=== PATIENT | female | born 1940 | race Caucasian/White ===

== ENCOUNTER 2016-08-24 13:25 | Emergency (ER) | payer MEDICARE, BC ==
--- NOTE | 2016-08-24 13:38 | ED ---
Lower Extremity Injury HPI - General Stated Complaint: Leg Pain Time Seen by Provider: 08/24/16 13:37 Source: patient, RN notes reviewed - History of Present Illness Initial Comments: 76 year old female presents to the ER c/o right leg pain. She states while sitting the pain is 0/10 currently. She took excedrin this morning. She has felt the pain on the front of the thigh for one week. She has not seen her primary physician about it yet. She states that she does not remember and injury or trauma to the area. She does have a history of arthritis and sciatica. She states that she has no other symptoms. She is able to ambulate and walk, but states her pain is the worst when she tries to ambulate. She also does state limited movement due to pain. She denies LOC, head trauma, fall, SOB , chest pain, urinary or bowel incontinence, numbness. Injury: Thigh: Right - Related Data Home Medications Medication Instructions Recorded Confirmed Albuterol Sulfate [Proventil Hfa] 2 puff INHALATION DIRECTED PRN 05/27/16 Aspirin [Adult Low Dose Aspirin EC] 81 mg PO DAILY 05/27/16 05/27/16 Beclomethasone Dip 80 Mcg/Puff 2 puff INHALATION DIRECTED PRN 05/27/16 [Qvar] Cinnamon Bark [Cinnamon] 500 mg PO DAILY 05/27/16 05/28/16 Citalopram Hydrobromide 10 mg PO DAILY 05/27/16 05/28/16 [Citalopram HBr] Eye Drop 1 drop LEFT EYE QID 05/27/16 Eye Vitamin 1 tab PO DAILY 05/27/16 Furosemide [Lasix] 40 mg PO QAM 05/27/16 05/28/16 Garlic 1 tab PO DAILY 05/27/16 05/28/16 Metoprolol/Hydrochlorothiazide 1 tab PO DAILY 05/27/16 05/28/16 [Lopressor Hct 50-25 mg Tab] Montelukast [Singulair] 10 mg PO DAILY 05/27/16 05/28/16 Multivitamins, Thera [Multivitamin] 1 tab PO DAILY 05/27/16 05/27/16 [place]-3 Fatty Acids/Fish Oil [Fish 1 tab PO DAILY 10/18/16 10/19/16 Oil 1,000 mg Softgel] Omeprazole 20 mg PO BID 05/27/16 05/28/16 Potassium Chloride [K-Tab ER] 30 meq PO BID 05/27/16 05/28/16 metFORMIN HCL [Glucophage] 500 mg PO HS 05/27/16 05/28/16 Previous Rx's Medication Instructions Recorded traMADol HCL [Conzip] 100 mg PO Q4-6H #30 cpbp.25.75 08/24/16 Allergies Allergy/AdvReac Type Severity Reaction Status Date / Time celecoxib [From Celebrex] Allergy Dyspnea Verified 08/24/16 13:41 oxaprozin [From Daypro] Allergy Dyspnea Verified 08/24/16 13:41 Penicillins Allergy Swelling Verified 08/24/16 13:41 [id number]-[id number]-Yjd Reductase AdvReac MUSCLE PAIN Verified 08/24/16 13:41 Inhibitor Review of Systems ROS Statement: Those systems with pertinent positive or pertinent negative responses have been documented in the HPI. ROS Other: All systems not noted in ROS Statement are negative. Past Medical History Past Medical History: Asthma, Diabetes Mellitus, GERD/Reflux, Hypertension Additional Past Medical History / Comment(s): CURRENT VIRUS IN LEFT EYE, HX HIATAL HERNIA, HX POLYP,HX SKIN CA History of Any Multi-Drug Resistant Organisms: None Reported Past Surgical History: Breast Surgery, Hysterectomy, Orthopedic Surgery, Tonsillectomy Additional Past Surgical History / Comment(s): TEJINDER KNEES ARTHROSCOPY, TEJINDER FEET BONE SPURS, TEJINDER CARPAL TUNNEL, TEJINDER CATARACT, RT BREAST BX BENIGN Past Anesthesia/Blood Transfusion Reactions: No Reported Reaction Past Psychological History: Anxiety Smoking Status: Former smoker Past Alcohol Use History: None Reported Additional Past Alcohol Use History / Comment(s): QUIT SMOKING 2005, SMOKED LESS THAN 1PPD. STARTED SMOKING AGE [id number] Past Drug Use History: None Reported - Past Family History Brother(s) Family Medical History: Cancer Additional Family Medical History / Comment(s): 2 BROTHERS Sister(s) Family Medical History: Cancer General Exam Limitations: no limitations General appearance: alert, in no apparent distress Head exam: Present: atraumatic Eye exam: Present: normal appearance, PERRL, EOMI Pupils: Present: normal accommodation Neck exam: Present: normal inspection Respiratory exam: Present: normal lung sounds bilaterally Cardiovascular Exam: Present: regular rate, normal rhythm Extremities exam: Present: tenderness (right anterior thigh) Left Hip exam: Present: normal inspection, full ROM Upper Leg exam: Present: normal inspection, full ROM Knee exam: Present: normal inspection, full ROM Lower Leg exam: Present: normal inspection, full ROM Ankle exam: Present: normal inspection, full ROM Foot/Toe exam: Present: normal inspection Neurovascular tendon exam: Present: no vascular compromise Right Hip exam: Present: normal inspection, full ROM Upper Leg exam: Present: normal inspection, full ROM (with pain on extension and flexion), tenderness (right anteroir thigh) Knee exam: Present: normal inspection, full ROM (with pain on flexion and extension) Lower Leg exam: Present: normal inspection, full ROM Ankle exam: Present: normal inspection, full ROM Neurovascular tendon exam: Present: no vascular compromise Gait: observed and limited by pain (mildly) Back exam: Present: normal inspection, other (no spinous process tenderness or SI tenderness) Neurological exam: Present: alert, oriented X3, CN II-XII intact Psychiatric exam: Present: normal affect, normal mood Course Vital Signs 08/24/16 08/24/16 08/24/16 13:36 13:37 15:06 Temperature 97.7 F 97.7 F 97.9 F Pulse Rate 67 67 59 L Respiratory 18 16 16 Rate Blood Pressure 117/77 117/77 137/81 O2 Sat by Pulse 95 95 96 Oximetry Disposition Clinical Impression: Arthritis of knee, right, Arthritis of right hip Disposition: HOME SELF-CARE Condition: Good Instructions: Arthritis (ED) Additional Instructions: To return to ER with any worsening symptoms or concerns. Exhibit care after taking pain medication. Follow up with PCP and ortho in one week. Prescriptions: traMADol HCL [Conzip] 100 mg PO Q4-6H #30 cpbp.25.75 Referrals: Regis Chowdhury DO [Primary Care Provider] - 1-2 days Donny Bartlett DO [Doctor of Osteopathic Medicine] - 1-2 days Time of Disposition: 03:00
[2016-08-24 13:41] VITALS: RESP 16
--- NOTE | 2016-08-24 14:53 | XR ---
EXAMINATION TYPE: XR Hip Complete RT DATE OF EXAM: 08/24/2016 2:47 PM COMPARISON: None HISTORY: Pain TECHNIQUE: 2 views FINDINGS: I see no fracture nor dislocation. Hip joint space is normal. Sacroiliac joint is normal. IMPRESSION: Normal right hip exam.
--- NOTE | 2016-08-24 14:54 | XR ---
EXAMINATION TYPE: XR knee complete RT DATE OF EXAM: 08/24/2016 2:47 PM COMPARISON: NONE HISTORY: Pain TECHNIQUE: 3 views FINDINGS: There is minor spurring of the femoral and tibial condyles. There is slight narrowing of me dial joint space. There is spurring of the patella. There is no evidence of a fracture. IMPRESSION: Osteoarthritic changes. No fracture.
[2016-08-24 15:07] VITALS: BP 137/81; PULSE 59; TEMP 97.9
== END 2016-08-24 15:25 | disposition home or self-care (01) ==
LOC: EC 13:25
DX: M17.11 Unilateral primary osteoarthritis, right knee (principal); M16.11 Unilateral primary osteoarthritis, right hip; Z79.899 Other long term (current) drug therapy; Z79.82 Long term (current) use of aspirin; Z79.84 Long term (current) use of oral hypoglycemic drugs; Z88.0 Allergy status to penicillin; Z88.8 Allergy status to other drugs, medicaments and biological substances; J45.909 Unspecified asthma, uncomplicated; E11.9 Type 2 diabetes mellitus without complications; K21.9 Gastro-esophageal reflux disease without esophagitis; I10 Essential (primary) hypertension; F41.9 Anxiety disorder, unspecified; Z87.891 Personal history of nicotine dependence
CPT/HCPCS: 73502; 99283

== ENCOUNTER → 2016-09-11 | Outpatient (CLI) | payer MEDICARE, BC ==
--- NOTE | 2016-09-12 10:10 | MM ---
Reason for exam: screening (asymptomatic). Last mammogram was performed 1 year ago. History: Patient is postmenopausal and has history of high-risk lesion on a previous biopsy at age 31. Benign excisional biopsy of the right breast, 1970. Physical Findings: A clinical breast exam by your physician is recommended on an annual basis and results should be correlated with mammographic findings. MG 3D Screening Mammo W/Cad Bilateral CC and MLO view(s) were taken. Prior study comparison: September 06, 2015, bilateral MG screening mammo w CAD. July 20, 2014, bilateral MG screening mammo w CAD. There are scattered fibroglandular densities. There is chronic nodularity in the left breast. There is no dominant lesion. No significant changes when compared with prior studies. ASSESSMENT: Benign, BI-RAD 2 RECOMMENDATION: Routine screening mammogram of both breasts in 1 year.
== END | disposition home or self-care (01) ==
LOC: RADMAMWWP 10:23
PROVIDERS: ATTEND Family Medicine
DX: Z12.31 Encounter for screening mammogram for malignant neoplasm of breast (principal)
CPT/HCPCS: 77063; G0202

== ENCOUNTER → 2017-09-24 | Outpatient (CLI) | payer MEDICARE, BC ==
--- NOTE | 2017-09-28 08:59 | MM ---
Reason for exam: screening (asymptomatic). Last mammogram was performed 1 year ago. History: Patient is postmenopausal and has history of high-risk lesion on a previous biopsy at age 31. Benign excisional biopsy of the right breast, 1970. Physical Findings: A clinical breast exam by your physician is recommended on an annual basis and results should be correlated with mammographic findings. MG 3D Screening Mammo W/Cad Bilateral CC and MLO view(s) were taken. Prior study comparison: September 11, 2016, bilateral MG 3d screening mammo w/cad. September 06, 2015, bilateral MG screening mammo w CAD. There are scattered fibroglandular densities. There is chronic nodularity in the left breast. No significant changes when compared with prior studies. ASSESSMENT: Negative, BI-RAD 1 RECOMMENDATION: Routine screening mammogram of both breasts in 1 year.
== END | disposition home or self-care (01) ==
LOC: RADMAMWWP 08:45
PROVIDERS: ATTEND Internal Medicine
DX: Z12.31 Encounter for screening mammogram for malignant neoplasm of breast (principal)
CPT/HCPCS: 77063; 77067

== ENCOUNTER 2018-05-18 16:28 | Emergency (ER) | payer MEDICARE, BC ==
[2018-05-18] MEDS ORDERED: SODIUM CHLORIDE 0.9% 1,000 ML IV STA (16:50)
[2018-05-18] MEDS ORDERED: SODIUM CHLORIDE 0.9% 500 ML IV STA (16:50)
[2018-05-18] MEDS ORDERED: ONDANSETRON 4 MG/2 ML VIAL IVP STA (16:50)
[2018-05-18] MEDS ORDERED: PANTOPRAZOLE 40 MG/10 ML VIAL IVP STA (16:51)
--- NOTE | 2018-05-18 17:03 | ED ---
Nausea/Vomiting/Diarrhea HPI - General Chief complaint: Nausea/Vomiting/Diarrhea Stated complaint: NVD Time Seen by Provider: 05/18/18 16:47 Source: patient, EMS, RN notes reviewed Mode of arrival: EMS Limitations: no limitations - History of Present Illness Initial comments: 78-year-old female presents emergency department via EMS chief complaint of nausea vomiting diarrhea. Patient states symptoms started late last night haven 't persisted throughout the day. She denies chest pain, shortness breath, fever , chills, and dizziness. She states that she has had several episodes a normal amount of diarrhea and vomiting states it's bilious emesis at this time and states that her loose watery diarrhea. She's had no sick contacts. She's had a prior appendectomy and hysterectomy. She has no urinary symptoms. - Related Data Home Medications Medication Instructions Recorded Confirmed Albuterol Sulfate [Proventil Hfa] 2 puff INHALATION DIRECTED PRN 05/27/1604/27 Aspirin [Adult Low Dose Aspirin EC] 81 mg PO HS 05/27/16 05/18/18 Beclomethasone Dip 80 Mcg/Puff 2 puff INHALATION RT-DAILY PRN 05/27/16 05/18/18 [Qvar] Cinnamon Bark [Cinnamon] 500 mg PO DAILY 05/27/16 05/18/18 Citalopram Hydrobromide 20 mg PO DAILY 05/27/16 05/18/18 [Citalopram HBr] Eye Vitamin 1 tab PO DAILY 05/27/16 05/18/18 Furosemide [Lasix] 40 mg PO QAM 05/27/16 05/18/18 Garlic 1 tab PO DAILY 05/27/16 05/18/18 Metoprolol/Hydrochlorothiazide 1 tab PO HS 05/27/16 05/18/18 [Lopressor Hct 50-25 mg Tab] Montelukast [Singulair] 10 mg PO HS 05/27/16 05/18/18 Multivitamins, Thera [Multivitamin] 1 tab PO DAILY 05/27/16 05/18/18 [place]-3 Fatty Acids/Fish Oil [Fish 1 tab PO DAILY 05/27/16 05/18/18 Oil 1,000 mg Softgel] Potassium Chloride [K-Tab ER] 30 meq PO HS 05/27/16 05/18/18 metFORMIN HCL [Glucophage] 500 mg PO BID 05/27/16 05/18/18 Calcium Carbonate [Calcium] 600 mg PO DAILY 05/18/18 05/18/18 Cetirizine HCl [Zyrtec] 10 mg PO DAILY 05/18/18 05/18/18 Furosemide [Lasix] 20 mg PO HS 05/18/18 05/18/18 Magnesium 200 mg PO DAILY 05/18/18 05/18/18 Niacin 250 mg PO DAILY 05/18/18 05/18/18 Omeprazole [PriLOSEC] 40 mg PO DAILY 05/18/18 05/18/18 Allergies Allergy/AdvReac Type Severity Reaction Status Date / Time celecoxib [From Celebrex] Allergy Dyspnea Verified 05/18/18 16:42 oxaprozin [From Daypro] Allergy Dyspnea Verified 05/18/18 16:42 Penicillins Allergy Swelling Verified 05/18/18 16:42 Pehsxgv-Rrn-Kns Reductase AdvReac MUSCLE PAIN Verified 05/18/18 16:42 Inhibitor Review of Systems ROS Statement: Those systems with pertinent positive or pertinent negative responses have been documented in the HPI. ROS Other: All systems not noted in ROS Statement are negative. Past Medical History Past Medical History: Asthma, Diabetes Mellitus, GERD/Reflux, Hypertension Additional Past Medical History / Comment(s): CURRENT VIRUS IN LEFT EYE, HX HIATAL HERNIA, HX POLYP,HX SKIN CA History of Any Multi-Drug Resistant Organisms: None Reported Past Surgical History: Breast Surgery, Hysterectomy, Orthopedic Surgery, Tonsillectomy Additional Past Surgical History / Comment(s): TEJINDER KNEES ARTHROSCOPY, TEJINDER FEET BONE SPURS, TEJINDER CARPAL TUNNEL, TEJINDER CATARACT, RT BREAST BX BENIGN Past Anesthesia/Blood Transfusion Reactions: No Reported Reaction Past Psychological History: Anxiety Smoking Status: Former smoker Past Alcohol Use History: None Reported Past Drug Use History: None Reported - Past Family History Brother(s) Family Medical History: Cancer Additional Family Medical History / Comment(s): 2 BROTHERS Sister(s) Family Medical History: Cancer General Exam Limitations: no limitations General appearance: alert, in no apparent distress Head exam: Present: atraumatic, normocephalic, normal inspection Neck exam: Present: normal inspection. Absent: tenderness, meningismus, lymphadenopathy Respiratory exam: Present: normal lung sounds bilaterally. Absent: respiratory distress, wheezes, rales, rhonchi, stridor Cardiovascular Exam: Present: regular rate, normal rhythm, normal heart sounds. Absent: systolic murmur, diastolic murmur, rubs, gallop, clicks GI/Abdominal exam: Present: soft, normal bowel sounds. Absent: distended, tenderness, guarding, rebound, rigid Back exam: Absent: CVA tenderness (R), CVA tenderness (L) Neurological exam: Present: alert Skin exam: Present: warm, dry, intact, normal color. Absent: rash Course Vital Signs 05/18/18 05/18/18 16:46 18:37 Temperature 98.9 F Pulse Rate 72 65 Respiratory 18 18 Rate Blood Pressure 181/85 187/88 O2 Sat by Pulse 97 98 Oximetry Medical Decision Making - Medical Decision Making 78-year-old female presents emergency department for nausea vomiting diarrhea. Patient had lab work, was hydrated given antiemetics. Patient states she feels improved she is able tolerate water and crackers. Patient will be discharged at this time return parameters were discussed. - Lab Data Result diagrams: 05/18/18 17:35 05/18/18 17:35 Lab Results 05/18/18 05/18/18 05/18/18 Range/Units 17:35 17:35 17:55 WBC 5.4 (3.8-10.6) k/uL RBC 4.19 (3.80-5.40) m/uL Hgb 13.4 (11.4-16.0) gm/dL Hct 39.0 (34.0-46.0) % MCV 93.1 (80.0-100.0) fL MCH 32.0 (25.0-35.0) pg MCHC 34.4 (31.0-37.0) g/dL RDW 13.4 (11.5-15.5) % Plt Count 251 (150-450) k/uL Neutrophils % 70 % Lymphocytes % 22 % Monocytes % 5 % Eosinophils % 2 % Basophils % 1 % Neutrophils # 3.8 (1.3-7.7) k/uL Lymphocytes # 1.2 (1.0-4.8) k/uL Monocytes # 0.3 (0-1.0) k/uL Eosinophils # 0.1 (0-0.7) k/uL Basophils # 0.0 (0-0.2) k/uL Sodium 138 (137-145) mmol/L Potassium 3.7 (3.5-5.1) mmol/L Chloride 103 (98-107) mmol/L Carbon Dioxide 26 (22-30) mmol/L Anion Gap 9 mmol/L BUN 19 H (7-17) mg/dL Creatinine 0.68 (0.52-1.04) mg/dL Est GFR (CKD-EPI)AfAm >90 (>60 ml/min/1.73 sqM) Est GFR (CKD-EPI)NonAf 85 (>60 ml/min/1.73 sqM) Glucose 128 H (74-99) mg/dL Calcium 9.4 (8.4-10.2) mg/dL Total Bilirubin 0.6 (0.2-1.3) mg/dL AST 20 (14-36) U/L ALT 26 (9-52) U/L Alkaline Phosphatase 53 (38-126) U/L Total Protein 6.7 (6.3-8.2) g/dL Albumin 4.1 (3.5-5.0) g/dL Amylase <30 L (30-110) U/L Lipase 87 (23-300) U/L Urine Color Light Yellow Urine Appearance Clear (Clear) Urine pH 7.0 (5.0-8.0) Ur Specific [place] 1.011 (1.001-1.035) Urine Protein Negative (Negative) Urine Glucose (UA) Negative (Negative) Urine Ketones Negative (Negative) Urine Blood Negative (Negative) Urine Nitrite Negative (Negative) Urine Bilirubin Negative (Negative) Urine Urobilinogen <2.0 (<2.0) mg/dL Ur Leukocyte Esterase Negative (Negative) Disposition Clinical Impression: Gastroenteritis Disposition: HOME SELF-CARE Condition: Stable Instructions: Gastroenteritis (ED) Additional Instructions: Please return to the Emergency Department if symptoms worsen or any other concerns. Is patient prescribed a controlled substance at d/c from ED?: No Referrals: Rolf Houston MD [Primary Care Provider] - 1-2 days Time of Disposition: 19:38
[2018-05-18 17:48] LABS: Basophils % (A) 1 %; Eosinophils # (A) 0.1 k/uL (0-0.7); Eosinophils % (A) 2 %; HGB 13.4 gm/dL (11.4-16.0); Lymphocytes # (A) 1.2 k/uL (1.0-4.8); Lymphocytes % (A) 22 %; MCHC 34.4 g/dL (31.0-37.0); MCV 93.1 fL (80.0-100.0); Mean Platelet Volume 7.9; Monocytes # (A) 0.3 k/uL (0-1.0); Monocytes % (A) 5 %; Neutrophils # (A) 3.8 k/uL (1.3-7.7); Neutrophils % (A) 70 %; Platelet Count 251 k/uL (150-450); RBC 4.19 m/uL (3.80-5.40); RDW 13.4 % (11.5-15.5); WBC 5.4 k/uL (3.8-10.6)
--- NOTE | 2018-05-18 18:00 | XR ---
EXAMINATION TYPE: XR KUB, 2 views DATE OF EXAM: 05/18/2018 COMPARISON: NONE HISTORY: Pain TECHNIQUE: 2 upright views FINDINGS: Visualized lung bases and pleural spaces are negative. No pneumoperitoneum. Bowel gas pattern is within normal limits. No definite acute abdominal pelvic soft tissue or skeletal process. IMPRESSION: Negative examination.
[2018-05-18 18:02] LABS: ALT 26 U/L (9-52); AST 20 U/L (14-36); Albumin 4.1 g/dL (3.5-5.0); Alkaline Phosphatase 53 U/L (38-126); Amylase <30 U/L (30-110); Anion Gap 9 mmol/L; Blood Urea Nitrogen 19 mg/dL (7-17); Calcium 9.4 mg/dL (8.4-10.2); Carbon Dioxide 26 mmol/L (22-30); Chloride 103 mmol/L (98-107); Glucose 128 mg/dL (74-99); Lipase 87 U/L (23-300); Potassium 3.7 mmol/L (3.5-5.1); Sodium 138 mmol/L (137-145); Total Bilirubin 0.6 mg/dL (0.2-1.3); Total Protein 6.7 g/dL (6.3-8.2)
[2018-05-18 18:05] LABS: Appearance,Urine Clear (Clear); Bilirubin,Urine Negative (Negative); Blood,Urine Negative (Negative); Color,Urine Light Yellow; Glucose,Urine (UA) Negative (Negative); Ketones,Urine Negative (Negative); Leukocyte Esterase,Urine Negative (Negative); Nitrite,Urine Negative (Negative); Protein,Urine Negative (Negative); Specific Gravity,Urine 1.011 (1.001-1.035); Urobilinogen,Urine <2.0 mg/dL (<2.0)
[2018-05-18] MEDS ORDERED: METOCLOPRAMIDE 5 MG/ML 2 ML VIAL IVP STA (18:15)
[2018-05-18] MEDS ORDERED: ONDANSETRON 4 MG ODT STARTER PACK 2 TAB BTL PO STA (19:38)
[2018-05-18 20:18] VITALS: BP 175/82; PULSE 64; RESP 17; TEMP 97.9
== END 2018-05-18 20:13 | disposition home or self-care (01) ==
LOC: EC 16:28
DX: K52.9 Noninfective gastroenteritis and colitis, unspecified (principal); J45.909 Unspecified asthma, uncomplicated; E11.9 Type 2 diabetes mellitus without complications; F41.9 Anxiety disorder, unspecified; K21.9 Gastro-esophageal reflux disease without esophagitis; I10 Essential (primary) hypertension; Z87.19 Personal history of other diseases of the digestive system; Z86.010 Personal history of colon polyps; Z85.828 Personal history of other malignant neoplasm of skin; Z87.891 Personal history of nicotine dependence; Z90.49 Acquired absence of other specified parts of digestive tract; Z90.710 Acquired absence of both cervix and uterus; Z98.890 Other specified postprocedural states; Z79.82 Long term (current) use of aspirin; Z79.84 Long term (current) use of oral hypoglycemic drugs; Z79.899 Other long term (current) drug therapy; Z88.0 Allergy status to penicillin; Z88.6 Allergy status to analgesic agent; Z88.8 Allergy status to other drugs, medicaments and biological substances
CPT/HCPCS: 36415; 80053; 82150; 83690; 85025; 81003; 74018; 99284; 96374; 96375 ×2; 96361; J2765; J2405; S0119; C9113

== ENCOUNTER 2020-12-16 09:19 | Inpatient (IN) | payer MEDICARE, BC ==
[2020-12-16] MEDS ORDERED: SODIUM CHLORIDE 0.9% 500 ML 500 ML IV STA (09:46)
--- NOTE | 2020-12-16 09:52 | ED ---
General Adult HPI - General Chief complaint: Nausea/Vomiting/Diarrhea Stated complaint: abd pain Time Seen by Provider: 12/16/20 09:20 Source: patient, RN notes reviewed, old records reviewed Mode of arrival: EMS Limitations: no limitations - History of Present Illness Initial comments: This is a 80-year-old female presents emergency Department stating that she woke up this morning and started having diarrhea. Patient states is also some blood in the stool. Patient also complains of generalized weakness. Patient states she had a little bit of hunger pains but no specific abdominal pain. Patient denies any nausea vomiting. Patient denies any chest pain palpitations difficulty breathing shortness of breath. Patient denies any dysuria hematuria urinary frequency. Patient denies any back pain. Patient denies similar symptoms in the past. Patient denies being on any blood thinners. - Related Data Home Medications Medication Instructions Recorded Confirmed Albuterol Sulfate [Proventil Hfa] 2 puff INHALATION RT-Q6H PRN 05/27/16 12/16/20 Cinnamon Bark [Cinnamon] 500 mg PO TID 05/27/16 12/16/20 Citalopram Hydrobromide 20 mg PO DAILY 05/27/16 12/16/20 [Citalopram HBr] Furosemide [Lasix] 40 mg PO DAILY 05/27/16 12/16/20 Montelukast [Singulair] 10 mg PO HS 05/27/16 12/16/20 Multivitamins, Thera [Multivitamin] 1 tab PO DAILY 05/27/16 12/16/20 metFORMIN HCL [Glucophage] 500 mg PO BID 05/27/16 12/16/20 Calcium Carbonate [Calcium] 600 mg PO BID 05/18/18 12/16/20 Furosemide [Lasix] 20 mg PO HS 05/18/18 12/16/20 [id number] 2 tab PO Q6H PRN 12/16/20 12/16/20 [Excedrin] Ketotifen 0.025% Ophth Soln 1 drop BOTH EYES BID 12/16/20 12/16/20 [Zaditor] Magnesium 250 mg PO DAILY 12/16/20 12/16/20 Metoprolol Succinate (ER) [Toprol 50 mg PO DAILY 12/16/20 12/16/20 Xl] Niacin 500 mg PO BID 12/16/20 12/16/20 Pantoprazole [Protonix] 40 mg PO DAILY 12/16/20 12/16/20 Potassium Gluconate 99 mg PO BID 12/16/20 12/16/20 Propylene Glycol/Peg 400/Pf 1 drop BOTH EYES BID 12/16/20 12/16/20 [Systane 0.3-0.4% Eye Drops] Vit C/E/Zn/Coppr/Lutein/Zeaxan 1 cap PO BID 12/16/20 12/16/20 [Preservision Areds 2 Softgel] Allergies Allergy/AdvReac Type Severity Reaction Status Date / Time celecoxib [From Celebrex] Allergy Dyspnea Verified 12/16/20 09:24 oxaprozin [From Daypro] Allergy Dyspnea Verified 12/16/20 09:24 Penicillins Allergy Swelling Verified 12/16/20 09:24 Aihjjpg-Zon-Axc Reductase AdvReac MUSCLE PAIN Verified 12/16/20 09:24 Inhibitor Review of Systems ROS Statement: Those systems with pertinent positive or pertinent negative responses have been documented in the HPI. ROS Other: All systems not noted in ROS Statement are negative. Past Medical History Past Medical History: Asthma, Diabetes Mellitus, GERD/Reflux, Hypertension Additional Past Medical History / Comment(s): CURRENT VIRUS IN LEFT EYE, HX HIATAL HERNIA, HX POLYP,HX SKIN CA History of Any Multi-Drug Resistant Organisms: None Reported Past Surgical History: Breast Surgery, Hysterectomy, Orthopedic Surgery, Tonsillectomy Additional Past Surgical History / Comment(s): TEJINDER KNEES ARTHROSCOPY, TEJINDER FEET BONE SPURS, TEJINDER CARPAL TUNNEL, TEJINDER CATARACT, RT BREAST BX BENIGN Past Anesthesia/Blood Transfusion Reactions: No Reported Reaction Past Psychological History: Anxiety Smoking Status: Former smoker Past Alcohol Use History: None Reported Past Drug Use History: None Reported - Past Family History Brother(s) Family Medical History: Cancer Additional Family Medical History / Comment(s): 2 BROTHERS Sister(s) Family Medical History: Cancer General Exam - General Exam Comments Initial Comments: GENERAL: Patient is well-developed and well-nourished. Patient is nontoxic and well- hydrated and is in mild distress. ENT: Neck is soft and supple. No significant lymphadenopathy is noted. Oropharynx is clear. Moist mucous membranes. Neck has full range of motion without eliciting any pain. EYES: The sclera were anicteric and conjunctiva were pink and moist. Extraocular movements were intact and pupils were equal round and reactive to light. Eyelids were unremarkable. PULMONARY: Unlabored respirations. Good breath sounds bilaterally. No audible rales rhonchi or wheezing was noted. CARDIOVASCULAR: There is a regular rate and rhythm without any murmurs gallops or rubs. ABDOMEN: Soft and nontender with normal bowel sounds. SKIN: Skin is clear with no lesions or rashes and otherwise unremarkable. NEUROLOGIC: Patient is alert and oriented x3. Cranial nerves II through XII are grossly intact. Motor and sensory are also intact. Normal speech, volume and content. Symmetrical smile. MUSCULOSKELETAL: Normal extremities with adequate strength and full range of motion. LYMPHATICS: No significant lymphadenopathy is noted PSYCHIATRIC: Normal psychiatric evaluation. Limitations: no limitations Course Vital Signs 12/16/20 09:21 Temperature 98.3 F Pulse Rate 63 Respiratory 16 Rate Blood Pressure 154/70 O2 Sat by Pulse 98 Oximetry Medical Decision Making - Medical Decision Making EKG shows normal sinus rhythm at 63 bpm IA interval is on a 34 QRS is 86 QT interval 412 QTC is 421 per patient's EKG shows no ST segment elevation or depression. Patient received fluids in the emergency department I will back and reevaluated and she was feeling better. I spoke with Dr. Sarmiento she agreed to admit the patient minute the patient wrote admitting orders. - Lab Data Result diagrams: 12/16/20 09:55 12/16/20 09:55 Lab Results 12/16/20 12/16/20 12/16/20 Range/Units 09:55 09:55 10:13 WBC 7.0 (3.8-10.6) k/uL RBC 3.34 L (3.80-5.40) m/uL Hgb 11.1 L (11.4-16.0) gm/dL Hct 32.3 L (34.0-46.0) % MCV 96.8 (80.0-100.0) fL MCH 33.3 (25.0-35.0) pg MCHC 34.4 (31.0-37.0) g/dL RDW 14.1 (11.5-15.5) % Plt Count 226 (150-450) k/uL MPV 8.2 Neutrophils % 72 % Lymphocytes % 17 % Monocytes % 4 % Eosinophils % 4 % Basophils % 1 % Neutrophils # 5.1 (1.3-7.7) k/uL Lymphocytes # 1.2 (1.0-4.8) k/uL Monocytes # 0.3 (0-1.0) k/uL Eosinophils # 0.3 (0-0.7) k/uL Basophils # 0.1 (0-0.2) k/uL PT (9.0-12.0) sec INR (<1.2) APTT (22.0-30.0) sec Sodium 140 (137-145) mmol/L Potassium 4.5 (3.5-5.1) mmol/L Chloride 107 (98-107) mmol/L Carbon Dioxide 28 (22-30) mmol/L Anion Gap 5 mmol/L BUN 35 H (7-17) mg/dL Creatinine 0.79 (0.52-1.04) mg/dL Est GFR (CKD-EPI)AfAm 84 (>60 ml/min/1.73 sqM) Est GFR (CKD-EPI)NonAf 73 (>60 ml/min/1.73 sqM) Glucose 133 H (74-99) mg/dL Calcium 8.7 (8.4-10.2) mg/dL Total Bilirubin 0.5 (0.2-1.3) mg/dL AST 21 (14-36) U/L ALT 13 (4-34) U/L Alkaline Phosphatase 40 (38-126) U/L Total Protein 5.6 L (6.3-8.2) g/dL Albumin 3.3 L (3.5-5.0) g/dL Amylase 32 (30-110) U/L Lipase 128 (23-300) U/L Urine Color Yellow Urine Appearance Clear (Clear) Urine pH 8.0 (5.0-8.0) Ur Specific [place] 1.026 (1.001-1.035) Urine Protein Negative (Negative) Urine Glucose (UA) Negative (Negative) Urine Ketones Negative (Negative) Urine Blood Negative (Negative) Urine Nitrite Negative (Negative) Urine Bilirubin Negative (Negative) Urine Urobilinogen <2.0 (<2.0) mg/dL Ur Leukocyte Esterase Negative (Negative) Blood Type Recheck Bld Type Recheck Status Spec Expiration Date 12/16/20 12/16/20 Range/Units 10:40 10:50 WBC (3.8-10.6) k/uL RBC (3.80-5.40) m/uL Hgb (11.4-16.0) gm/dL Hct (34.0-46.0) % MCV (80.0-100.0) fL MCH (25.0-35.0) pg MCHC (31.0-37.0) g/dL RDW (11.5-15.5) % Plt Count (150-450) k/uL MPV Neutrophils % % Lymphocytes % % Monocytes % % Eosinophils % % Basophils % % Neutrophils # (1.3-7.7) k/uL Lymphocytes # (1.0-4.8) k/uL Monocytes # (0-1.0) k/uL Eosinophils # (0-0.7) k/uL Basophils # (0-0.2) k/uL PT 11.6 (9.0-12.0) sec INR 1.1 (<1.2) APTT 21.5 L (22.0-30.0) sec Sodium (137-145) mmol/L Potassium (3.5-5.1) mmol/L Chloride (98-107) mmol/L Carbon Dioxide (22-30) mmol/L Anion Gap mmol/L BUN (7-17) mg/dL Creatinine (0.52-1.04) mg/dL Est GFR (CKD-EPI)AfAm (>60 ml/min/1.73 sqM) Est GFR (CKD-EPI)NonAf (>60 ml/min/1.73 sqM) Glucose (74-99) mg/dL Calcium (8.4-10.2) mg/dL Total Bilirubin (0.2-1.3) mg/dL AST (14-36) U/L ALT (4-34) U/L Alkaline Phosphatase (38-126) U/L Total Protein (6.3-8.2) g/dL Albumin (3.5-5.0) g/dL Amylase (30-110) U/L Lipase (23-300) U/L Urine Color Urine Appearance (Clear) Urine pH (5.0-8.0) Ur Specific [place] (1.001-1.035) Urine Protein (Negative) Urine Glucose (UA) (Negative) Urine Ketones (Negative) Urine Blood (Negative) Urine Nitrite (Negative) Urine Bilirubin (Negative) Urine Urobilinogen (<2.0) mg/dL Ur Leukocyte Esterase (Negative) Blood Type Recheck No Previous Record Bld Type Recheck Status CABO Indicated Spec Expiration Date 12/19/20202339 Disposition Clinical Impression: GI bleed, Diarrhea, Generalized weakness Disposition: ADMITTED IP TO THIS HOSP Referrals: Rolf Houston MD [Primary Care Provider] - 1-2 days Time of Disposition: 11:47
[2020-12-16 10:02] LABS: Basophils # (A) 0.1 k/uL (0-0.2); Basophils % (A) 1 %; Eosinophils # (A) 0.3 k/uL (0-0.7); Eosinophils % (A) 4 %; HCT 32.3 % (34.0-46.0); HGB 11.1 gm/dL (11.4-16.0); Lymphocytes # (A) 1.2 k/uL (1.0-4.8); Lymphocytes % (A) 17 %; MCH 33.3 pg (25.0-35.0); MCHC 34.4 g/dL (31.0-37.0); MCV 96.8 fL (80.0-100.0); Mean Platelet Volume 8.2; Monocytes # (A) 0.3 k/uL (0-1.0); Monocytes % (A) 4 %; Neutrophils # (A) 5.1 k/uL (1.3-7.7); Neutrophils % (A) 72 %; Platelet Count 226 k/uL (150-450); RBC 3.34 m/uL (3.80-5.40); RDW 14.1 % (11.5-15.5)
[2020-12-16 10:30] LABS: Albumin 3.3 g/dL (3.5-5.0); Calcium 8.7 mg/dL (8.4-10.2); Potassium 4.5 mmol/L (3.5-5.1); Total Bilirubin 0.5 mg/dL (0.2-1.3); Total Protein 5.6 g/dL (6.3-8.2)
[2020-12-16 11:12] LABS: Appearance,Urine Clear (Clear); Bilirubin,Urine Negative (Negative); Blood,Urine Negative (Negative); Color,Urine Yellow; Glucose,Urine (UA) Negative (Negative); Ketones,Urine Negative (Negative); Leukocyte Esterase,Urine Negative (Negative); Nitrite,Urine Negative (Negative); Protein,Urine Negative (Negative); Specific Gravity,Urine 1.026 (1.001-1.035); Urobilinogen,Urine <2.0 mg/dL (<2.0)
[2020-12-16 11:15] LABS: INR 1.1 (<1.2); Prothrombin Time 11.6 sec (9.0-12.0)
[2020-12-16 11:37] LABS: Partial Thromboplastin Time 21.5 sec (22.0-30.0)
[2020-12-16] MEDS ORDERED: SODIUM CHLORIDE 0.9% 1,000 ML IV ONE (11:47)
[2020-12-16 14:17] LABS: Glucose,Whole Blood 121 mg/dL (75-99)
[2020-12-16] MEDS ORDERED: ALBUTEROL HFA INHALER INHALATION PRN (15:22)
[2020-12-16] MEDS ORDERED: ONDANSETRON 4 MG/2 ML VIAL IVP PRN (15:31)
[2020-12-16] MEDS ORDERED: ACETAMINOPHEN TAB 325 MG TAB PO PRN (15:31)
--- NOTE | 2020-12-16 15:40 | P.HPIM ---
History of Present Illness H&P Date: 12/16/20 This is a 80 years old female patient of Dr. Silva with past medical history of asthma, type 2 diabetes, GERD, hypertension comes in with multiple episodes of diarrhea starting this morning. Patient also notices black stool this morning. She denies any history of previous GI bleed. Last colonoscopy was 4 years ago had polyps removed Patient also had an EGD and has hiatal hernia but denied any history of gastric ulcers. She is currently under a lot of stress due to her being sick. Patient complains of mild epigastric discomfort like a hunger pains but no other abdominal pain. She denies any chest pain, dizziness, palpitation, shortness of breath, hematuria, burning mi cturition, back pain. She denies any recent use of blood thinners. She does take Excedrin for her arthritis 2 in the morning and 2 in the evening vitals reviewed in the ER suggested temp of 98.3 pulse 63 respiratory rate 16 blood pressure 154/60. Labs evaluated suggested a hemoglobin of 11.1, hematocrit 32.3, WBC 7, CMP with sodium 140 potassium 4.5 chloride 107 BUN 35 creatinine 0.79 glucose 133 UA is normal. EKG is reviewedrule out ACS. Appears sinus rhythm. Review of Systems Constitutional: Endorses fever and chills, Denies lethargy, Denies malaise, Denies poor appetite, Denies weakness, Denies weight loss Eyes: denies decreased vision, denies diplopia, denies discharge, denies pain Ears: deny: decreased hearing Ears, nose, mouth and throat: Denies dental pain, Denies headache, Denies nasal discharge, Denies nose pain Cardiovascular: Denies chest pain, Denies decreased exercise tolerance, Denies edema, Denies high blood pressure, Denies irregular heart beat, Denies palpitations, Denies paroxysmal nocturnal dyspnea, Denies rapid heart beat, Denies shortness of breath Respiratory: Denies congestion, Denies cough, Denies cough with sputum, Denies dyspnea, Denies home oxygen, Denies wheezing Gastrointestinal: Endorses hunger pain, diarrhea, endorses black blood in her stool Denies change in bowel habits, Denies coffee ground emesis, Denies early satiety, Denies excessive gas, Denies heartburn, Denies hematemesis, Denies hematochezia, Denies loss of appetite, Denies nausea, Denies vomiting Genitourinary: Denies dysuria, Denies flank pain, Denies kidney stones, Denies menorrhagia, Denies urgency, Denies urinary frequency Musculoskeletal: Denies gait dysfunction, Denies limitation of motion, Denies morning stiffness, Denies muscle cramps Integumentary: Denies rash, Denies wounds, Denies brittle nails, Denies change in hair/nails, Denies darkening of skin Neurological: Denies balance difficulties, Denies change in speech, Denies double vision, Denies gait dysfunction, Denies loss of vision, Denies motor disturbance, Denies numbness, Denies paralysis, Denies paresthesias, Denies seizures Psychiatric: Denies anxiety, Denies depression Endocrine: Denies excessive sweating, Denies excessive thirst, Denies high blood sugars, Denies palpitations Hematologic/Lymphatic: Denies easy bruising, Denies lymphadenopathy Past Medical History Past Medical History: Asthma, Diabetes Mellitus, GERD/Reflux, Hypertension Additional Past Medical History / Comment(s): pink eye IN LEFT EYE, HX HIATAL HERNIA, HX POLYP,HX SKIN CA History of Any Multi-Drug Resistant Organisms: None Reported Past Surgical History: Appendectomy, Breast Surgery, Hysterectomy, Orthopedic Surgery, Tonsillectomy Additional Past Surgical History / Comment(s): TEJINDER KNEES ARTHROSCOPY, TEJINDER FEET BONE SPURS, TEJINDER CARPAL TUNNEL, TEJINDER CATARACT, RT BREAST BX BENIGN, TRIGGER RELEASE Past Anesthesia/Blood Transfusion Reactions: No Reported Reaction Past Psychological History: Anxiety Smoking Status: Former smoker Past Alcohol Use History: None Reported Additional Past Alcohol Use History / Comment(s): QUIT SMOKING 2006, SMOKED LESS THAN 1PPD. STARTED SMOKING AGE [id number] Past Drug Use History: None Reported - Past Family History Brother(s) Family Medical History: Cancer Additional Family Medical History / Comment(s): 2 BROTHERS Sister(s) Family Medical History: Cancer Medications and Allergies Home Medications Medication Instructions Recorded Confirmed Type Albuterol Sulfate [Proventil Hfa] 2 puff INHALATION RT-Q6H PRN 05/27/16 12/16/20 History Cinnamon Bark [Cinnamon] 500 mg PO TID 05/27/16 12/16/20 History Citalopram Hydrobromide 20 mg PO DAILY 05/27/16 12/16/20 History [Citalopram HBr] Furosemide [Lasix] 40 mg PO DAILY 05/27/16 12/16/20 History Montelukast [Singulair] 10 mg PO HS 05/27/16 12/16/20 History Multivitamins, Thera [Multivitamin] 1 tab PO DAILY 05/27/16 12/16/20 History metFORMIN HCL [Glucophage] 500 mg PO BID 05/27/16 12/16/20 History Calcium Carbonate [Calcium] 600 mg PO BID 05/18/18 12/16/20 History Furosemide [Lasix] 20 mg PO HS 05/18/18 12/16/20 History [id number] 2 tab PO Q6H PRN 12/16/20 12/16/20 History [Excedrin] Ketotifen 0.025% Ophth Soln 1 drop BOTH EYES BID 12/16/20 12/16/20 History [Zaditor] Magnesium 250 mg PO DAILY 12/16/20 12/16/20 History Metoprolol Succinate (ER) [Toprol 50 mg PO DAILY 12/16/20 12/16/20 History Xl] Niacin 500 mg PO BID 12/16/20 12/16/20 History Pantoprazole [Protonix] 40 mg PO DAILY 12/16/20 12/16/20 History Potassium Gluconate 99 mg PO BID 12/16/20 12/16/20 History Propylene Glycol/Peg 400/Pf 1 drop BOTH EYES BID 12/16/20 12/16/20 History [Systane 0.3-0.4% Eye Drops] Vit C/E/Zn/Coppr/Lutein/Zeaxan 1 cap PO BID 12/16/20 12/16/20 History [Preservision Areds 2 Softgel] Allergies Allergy/AdvReac Type Severity Reaction Status Date / Time celecoxib [From Celebrex] Allergy Dyspnea Verified 12/16/20 09:24 oxaprozin [From Daypro] Allergy Dyspnea Verified 12/16/20 09:24 Penicillins Allergy Swelling Verified 12/16/20 09:24 Tmouoej-Rro-Gug Reductase AdvReac MUSCLE PAIN Verified 12/16/20 09:24 Inhibitor Physical Exam Vitals: Vital Signs Temp Pulse Pulse Resp BP BP Pulse Ox 12/16/20 15:11 98.6 F 101 H 18 197/80 94 L 12/16/20 13:48 98.0 F 66 16 144/70 98 12/16/20 09:21 98.3 F 63 16 154/70 98 Intake and Output 12/16/20 12/16/20 12/16/20 06:59 14:59 22:59 Other: Weight 94 kg - Constitutional General appearance: cooperative, no acute distress, obese - EENT Eyes: anicteric sclerae, PERRLA, normal appearance ENT: hearing grossly normal - Neck Neck: no lymphadenopathy, normal ROM, no other, no rigidity, no stridor, no thyromegaly - Respiratory Respiratory: bilateral: CTA, negative: diminished, dullness, rales, rhonchi - Cardiovascular Rhythm: regular Heart sounds: normal: S1, S2 Abnormal Heart Sounds: 3/6 systolic murmur, no diastolic murmur, no rub, no S3 Gallop, no S4 Gallop, no click, no other - Gastrointestinal General gastrointestinal: normal bowel sounds, soft epigastric discomfort - Integumentary Integumentary: no rash - Neurologic Neurologic: No gross motor or sensory deficit - Musculoskeletal Musculoskeletal: gait normal, strength equal bilaterally - Psychiatric Psychiatric: A&O x's 3, appropriate affect Results CBC & Chem 7: 12/16/20 09:55 12/16/20 09:55 Labs: Abnormal Lab Results - Last 24 Hours (Table) 12/16/20 12/16/20 12/16/20 Range/Units 09:55 09:55 10:50 RBC 3.34 L (3.80-5.40) m/uL Hgb 11.1 L (11.4-16.0) gm/dL Hct 32.3 L (34.0-46.0) % APTT 21.5 L (22.0-30.0) sec BUN 35 H (7-17) mg/dL Glucose 133 H (74-99) mg/dL POC Glucose (mg/dL) (75-99) mg/dL Total Protein 5.6 L (6.3-8.2) g/dL Albumin 3.3 L (3.5-5.0) g/dL 12/16/20 Range/Units 14:13 RBC (3.80-5.40) m/uL Hgb (11.4-16.0) gm/dL Hct (34.0-46.0) % APTT (22.0-30.0) sec BUN (7-17) mg/dL Glucose (74-99) mg/dL POC Glucose (mg/dL) 121 H (75-99) mg/dL Total Protein (6.3-8.2) g/dL Albumin (3.5-5.0) g/dL Thrombosis Risk Factor Assmnt - DVT/VTE Prophylaxis DVT/VTE Prophylaxis: Mechanical Prophylaxis ordered - Choose All That Apply Any of the Below Risk Factors Present?: Yes Each Factor Represents 1 point: Obesity (BMI >25) Other Risk Factors: Yes Each Risk Factor Represents 3 Points: Age 75 years or older Other congenital or acquired thrombophilia - If yes, enter type in comment: No Thrombosis Risk Factor Assessment Total Risk Factor Score: 4 Thrombosis Risk Factor Assessment Level: Moderate Risk Assessment and Plan Plan: #1 acute GI bleed likely secondary to peptic ulcer disease. GI consult for possible EGD. CBC daily. Pantoprazole 40 IV twice a day. Normal saline at 75 mL per hour. #2 acute diarrhea unclear etiology likely secondary to GI bleed. Inflammation markers ESR, CRP, LDH ordered. COVID 19 negative. C. diff ordered stool cultures ordered #3 asthma pro-air as needed #4 GERD with history of hiatal hernia on pantoprazole 40 mg twice a day #5 diabetes type 2 controlled on metformin #6 depression controlled on citalopram 20 mg by mouth daily #7 hypertension controlled on metoprolol 50 mg daily hold Lasix in the morning Lasix 20 in the night can be given #8 CODE STATUS full code #9 DVT prophylaxis SCDs #10 disposition patient is 1-2 inpatient nights for stabilization
[2020-12-16] MEDS ORDERED: METOPROLOL SUCCINATE (ER) 50 MG TAB.ER.24H PO STA (15:50)
[2020-12-16 17:00] LABS: Glucose,Whole Blood 112 mg/dL (75-99)
[2020-12-16 18:22] LABS: HCT 26.7 % (34.0-46.0); MCHC 32.8 g/dL (31.0-37.0); MCV 97.7 fL (80.0-100.0); Mean Platelet Volume 8.7; Platelet Count 220 k/uL (150-450); RBC 2.74 m/uL (3.80-5.40); RDW 14.6 % (11.5-15.5); WBC 5.9 k/uL (3.8-10.6)
[2020-12-16 18:35] LABS: HGB 8.8 gm/dL (11.4-16.0)
[2020-12-16 18:36] LABS: C Reactive Protein 0.7 mg/dL (<1.0)
[2020-12-16] MEDS: PANTOPRAZOLE 40 MG/10 ML VIAL IVP SCH (21:58)
[2020-12-16] MEDS: MONTELUKAST 10 MG TAB PO SCH (21:59)
[2020-12-16] MEDS: CALCIUM CARBONATE 500 MG CHEWABLE PO SCH (21:59)
[2020-12-16] MEDS: VIT A,C & E-LUTEIN-MINERALS 1 EACH TAB PO SCH (21:59)
[2020-12-16] MEDS: KETOTIFEN 0.025% OPHTH DROPS 5 ML BTL BOTH EYES SCH (22:00)
[2020-12-16] MEDS: metFORMIN 500 MG TAB PO SCH (22:00)
[2020-12-16] MEDS: ARTIFICIAL TEARS-HYPROMELLOSE DROPS 15 ML BTL BOTH EYES SCH (22:00)
[2020-12-16 22:51] LABS: Ferritin 15.6 ng/mL (10.0-291.0)
[2020-12-16 23:56] LABS: HCT 23.2 % (34.0-46.0); HGB 7.9 gm/dL (11.4-16.0); MCHC 33.8 g/dL (31.0-37.0); MCV 97.5 fL (80.0-100.0); Mean Platelet Volume 9.3; Platelet Count 192 k/uL (150-450); RBC 2.38 m/uL (3.80-5.40); RDW 14.3 % (11.5-15.5); WBC 5.4 k/uL (3.8-10.6)
[2020-12-17 06:28] LABS: Basophils % (A) 1 %; Eosinophils # (A) 0.2 k/uL (0-0.7); Eosinophils % (A) 4 %; HCT 24.1 % (34.0-46.0); HGB 7.9 gm/dL (11.4-16.0); Lymphocytes # (A) 1.6 k/uL (1.0-4.8); Lymphocytes % (A) 34 %; MCHC 32.7 g/dL (31.0-37.0); MCV 97.8 fL (80.0-100.0); Mean Platelet Volume 8.6; Monocytes # (A) 0.3 k/uL (0-1.0); Monocytes % (A) 7 %; Neutrophils # (A) 2.3 k/uL (1.3-7.7); Neutrophils % (A) 50 %; Platelet Count 210 k/uL (150-450); RBC 2.47 m/uL (3.80-5.40); RDW 14.7 % (11.5-15.5); WBC 4.6 k/uL (3.8-10.6)
[2020-12-17 06:44] LABS: ALT 10 U/L (4-34); AST 17 U/L (14-36); African American GFR (CKD) 88 (>60 ml/min/1.73 sqM); Albumin 2.8 g/dL (3.5-5.0); Albumin/Globulin Ratio 1.4; Alkaline Phosphatase 36 U/L (38-126); Anion Gap 3 mmol/L; Blood Urea Nitrogen 52 mg/dL (7-17); Calcium 8.5 mg/dL (8.4-10.2); Carbon Dioxide 27 mmol/L (22-30); Chloride 114 mmol/L (98-107); Glucose 105 mg/dL (74-99); Non-African American GFR(CKD) 77 (>60 ml/min/1.73 sqM); Potassium 4.1 mmol/L (3.5-5.1); Sodium 144 mmol/L (137-145); Total Bilirubin 0.2 mg/dL (0.2-1.3); Total Protein 4.8 g/dL (6.3-8.2)
[2020-12-17 07:34] LABS: Glucose,Whole Blood 109 mg/dL (75-99)
[2020-12-17] MEDS: METOPROLOL SUCCINATE (ER) 50 MG TAB.ER.24H PO SCH (08:11)
[2020-12-17] MEDS: MORPHINE SULFATE 4 MG/ML SYRINGE IVP PRN ×2 (08:16→20:59)
[2020-12-17] MEDS: ARTIFICIAL TEARS-HYPROMELLOSE DROPS 15 ML BTL BOTH EYES SCH ×2 (08:22→21:00)
[2020-12-17] MEDS: KETOTIFEN 0.025% OPHTH DROPS 5 ML BTL BOTH EYES SCH ×2 (08:22→21:00)
[2020-12-17] MEDS: CITALOPRAM HYDROBROMIDE 20 MG TAB PO SCH (08:23)
[2020-12-17] MEDS: MAGNESIUM OXIDE 400 MG TAB PO SCH (08:23)
[2020-12-17] MEDS: metFORMIN 500 MG TAB PO SCH (08:23)
[2020-12-17] MEDS: PANTOPRAZOLE 40 MG/10 ML VIAL IVP SCH ×2 (08:23→21:01)
[2020-12-17] MEDS: VIT A,C & E-LUTEIN-MINERALS 1 EACH TAB PO SCH ×2 (08:23→21:00)
[2020-12-17] MEDS: CALCIUM CARBONATE 500 MG CHEWABLE PO SCH ×2 (08:23→20:59)
[2020-12-17] MEDS: MULTIVITAMINS, THERA 1 EACH TAB PO SCH (08:23)
[2020-12-17 11:37] LABS: HCT 23.7 % (34.0-46.0); HGB 7.6 gm/dL (11.4-16.0); Hypochromasia Slight; MCH 31.5 pg (25.0-35.0); MCHC 32.2 g/dL (31.0-37.0); MCV 97.8 fL (80.0-100.0); Mean Platelet Volume 10.2; Platelet Count 200 k/uL (150-450); RBC 2.43 m/uL (3.80-5.40); RDW 14.8 % (11.5-15.5); WBC 6.7 k/uL (3.8-10.6)
[2020-12-17 12:08] LABS: Glucose,Whole Blood 125 mg/dL (75-99)
[2020-12-17] MEDS: SODIUM CHLORIDE 0.9% 1,000 ML IV SCH (13:28)
[2020-12-17] MEDS ORDERED: PEG 3350-NA SULF,BICARB,CL/KCL 4,000 ML BOTTLE PO ONE (15:00)
--- NOTE | 2020-12-17 15:37 | P.CONS ---
History of Present Illness - Reason for Consult Consult date: 12/17/20 Diarrhea, GI bleed Requesting physician: Portillo Sarmiento - Chief Complaint Diarrhea - History of Present Illness 80-year-old female with a medical history significant for GERD, hypertension, diabetes mellitus and asthma who presented to the hospital for evaluation of diarrhea. The patient reports multiple episodes of dark colored bowel movements. She denies any associated abdominal pain with her symptoms. She denies any nausea or vomiting. She reports diarrhea starting yesterday with approximately 10-15 watery, loose bowel movements. She did report seeing some bright red blood per rectum which subsequently turned dark. No sick contacts, antibiotic therapy or exposures are reported. She has previously had an EGD. The patient does take Protonix daily at home. She also takes Excedrin. No prior history of GI bleed. She did have a colonoscopy in 2016 with findings of scattered sigmoid diverticulosis and does have a history of prior colonic polyps. Testing for Clostridium difficile was negative. Testing for occult blood was positive. Patient's hemoglobin which was 11 on presentation subsequently fell to 7.9. Other laboratory evaluation significant for WBC 4.6, hemoglobin 7.9 as mentioned, platelet count 210,000, total bilirubin 0.2, alkaline phosphatase 36, AST 17 and ALT 10. Review of Systems REVIEW OF SYSTEMS: CONSTITUTIONAL: Denies any fevers, chills, weight change or she does report fatigue. CARDIOVASCULAR: Denies any chest pain, palpitations high or low blood pressures RESPIRATORY: Denies any shortness of breath, hemoptysis or cough. GENITOURINARY: No dysuria or hematuria. MUSCULOSKELETAL: No weakness reported. SKIN: Denies any new rashes or lesions, jaundice or pallor. PSYCHIATRIC: Denies any depression or anxiety. NEUROLOGY: Denies headache, denies any new focal deficits. EARS/NOSE/THROAT: No recent hearing change, congestion, nasal discharge or sore throat. EYES: No pain in eyes, discharge or change in vision. GASTROINTESTINAL: As per HPI. Past Medical History Past Medical History: Asthma, Diabetes Mellitus, GERD/Reflux, Hypertension Additional Past Medical History / Comment(s): pink eye IN LEFT EYE, HX HIATAL HERNIA, HX POLYP,HX SKIN CA History of Any Multi-Drug Resistant Organisms: None Reported Past Surgical History: Appendectomy, Breast Surgery, Hysterectomy, Orthopedic Surgery, Tonsillectomy Additional Past Surgical History / Comment(s): TEJINDER KNEES ARTHROSCOPY, TEJINDER FEET BONE SPURS, TEJINDER CARPAL TUNNEL, TEJINDER CATARACT, RT BREAST BX BENIGN, TRIGGER RELEASE Past Anesthesia/Blood Transfusion Reactions: No Reported Reaction Past Psychological History: Anxiety Smoking Status: Former smoker Past Alcohol Use History: None Reported Additional Past Alcohol Use History / Comment(s): QUIT SMOKING 2006, SMOKED LESS THAN 1PPD. STARTED SMOKING AGE 23, 1961 Past Drug Use History: None Reported - Past Family History Brother(s) Family Medical History: Cancer Additional Family Medical History / Comment(s): 2 BROTHERS Sister(s) Family Medical History: Cancer Medications and Allergies Home Medications Medication Instructions Recorded Confirmed Type Albuterol Sulfate [Proventil Hfa] 2 puff INHALATION RT-Q6H PRN 05/27/16 12/16/20 History Cinnamon Bark [Cinnamon] 500 mg PO TID 05/27/16 12/16/20 History Citalopram Hydrobromide 20 mg PO DAILY 05/27/16 12/16/20 History [Citalopram HBr] Furosemide [Lasix] 40 mg PO DAILY 05/27/16 12/16/20 History Montelukast [Singulair] 10 mg PO HS 05/27/16 12/16/20 History Multivitamins, Thera [Multivitamin] 1 tab PO DAILY 05/27/16 12/16/20 History metFORMIN HCL [Glucophage] 500 mg PO BID 05/27/16 12/16/20 History Calcium Carbonate [Calcium] 600 mg PO BID 05/18/18 12/16/20 History Furosemide [Lasix] 20 mg PO HS 05/18/18 12/16/20 History Asnijgz-Rbnl-Khiu [id number] 2 tab PO Q6H PRN 12/16/20 12/16/20 History [Excedrin] Ketotifen 0.025% Ophth Soln 1 drop BOTH EYES BID 12/16/20 12/16/20 History [Zaditor] Magnesium 250 mg PO DAILY 12/16/20 12/16/20 History Metoprolol Succinate (ER) [Toprol 50 mg PO DAILY 12/16/20 12/16/20 History Xl] Niacin 500 mg PO BID 12/16/20 12/16/20 History Pantoprazole [Protonix] 40 mg PO DAILY 12/16/20 12/16/20 History Potassium Gluconate 99 mg PO BID 12/16/20 12/16/20 History Propylene Glycol/Peg 400/Pf 1 drop BOTH EYES BID 12/16/20 12/16/20 History [Systane 0.3-0.4% Eye Drops] Vit C/E/Zn/Coppr/Lutein/Zeaxan 1 cap PO BID 12/16/20 12/16/20 History [Preservision Areds 2 Softgel] Allergies Allergy/AdvReac Type Severity Reaction Status Date / Time celecoxib [From Celebrex] Allergy Dyspnea Verified 12/16/20 09:24 oxaprozin [From Daypro] Allergy Dyspnea Verified 12/16/20 09:24 Penicillins Allergy Swelling Verified 12/16/20 09:24 [place] Reductase AdvReac MUSCLE PAIN Verified 12/16/20 09:24 Inhibitor Physical Exam Vitals: Vital Signs Temp Pulse Pulse Resp BP BP Pulse Ox 12/17/20 04:50 97.9 F 83 18 118/80 99 12/16/20 20:35 98.7 F 73 18 149/75 96 12/16/20 20:00 73 18 12/16/20 17:50 93 129/67 12/16/20 15:11 98.6 F 101 H 18 197/80 94 L 12/16/20 13:48 98.0 F 66 16 144/70 98 Intake and Output 12/16/20 12/17/20 12/17/20 22:59 06:59 14:59 Intake Total 100 900 Balance 100 900 Intake: Intake, IV Titration 100 900 Amount Sodium Chloride 0.9% 1, 100 900 000 ml @ 75 mls/hr IV . [id number] Rx#:[id number] Other: Voiding Method Toilet # Voids 1 4 # Bowel Movements 1 3 On physical examination, patient appears comfortable in no apparent distress. HEAD: Normocephalic, atraumatic. EYES: No scleral icterus. No conjunctival injection. MOUTH: No lesions, tongue midline. NECK: Trachea midline, no gross abnormalities. CHEST: Decreased air entry in all mejia. HEART: S1-S2 appreciated. ABDOMEN: Soft, nontender to palpation. Bowel sounds are positive. No organomegaly. No guarding or rigidity. EXTREMITIES: No pedal edema. SKIN: No rashes, no jaundice. NEUROLOGIC: Alert and oriented x3. No focal deficits. Results CBC & Chem 7: 12/17/20 11:25 12/17/20 05:45 Labs: Abnormal Lab Results - Last 24 Hours (Table) 12/16/20 12/16/20 12/16/20 Range/Units 14:13 16:00 16:58 RBC (3.80-5.40) m/uL Hgb (11.4-16.0) gm/dL Hct (34.0-46.0) % Chloride (98-107) mmol/L BUN (7-17) mg/dL Glucose (74-99) mg/dL POC Glucose (mg/dL) 121 H 112 H (75-99) mg/dL Alkaline Phosphatase (38-126) U/L Total Protein (6.3-8.2) g/dL Albumin (3.5-5.0) g/dL Stool Occult Blood Positive H (Negative) 12/16/20 12/16/20 12/17/20 Range/Units 17:41 23:23 05:45 RBC 2.74 L 2.38 L 2.47 L (3.80-5.40) m/uL Hgb 8.8 L D 7.9 L 7.9 L (11.4-16.0) gm/dL Hct 26.7 L 23.2 L 24.1 L (34.0-46.0) % Chloride (98-107) mmol/L BUN (7-17) mg/dL Glucose (74-99) mg/dL POC Glucose (mg/dL) (75-99) mg/dL Alkaline Phosphatase (38-126) U/L Total Protein (6.3-8.2) g/dL Albumin (3.5-5.0) g/dL Stool Occult Blood (Negative) 12/17/20 12/17/20 12/17/20 Range/Units 05:45 07:29 11:25 RBC 2.43 L (3.80-5.40) m/uL Hgb 7.6 L (11.4-16.0) gm/dL Hct 23.7 L (34.0-46.0) % Chloride 114 H (98-107) mmol/L BUN 52 H (7-17) mg/dL Glucose 105 H (74-99) mg/dL POC Glucose (mg/dL) 109 H (75-99) mg/dL Alkaline Phosphatase 36 L (38-126) U/L Total Protein 4.8 L (6.3-8.2) g/dL Albumin 2.8 L (3.5-5.0) g/dL Stool Occult Blood (Negative) 12/17/20 Range/Units 12:05 RBC (3.80-5.40) m/uL Hgb (11.4-16.0) gm/dL Hct (34.0-46.0) % Chloride (98-107) mmol/L BUN (7-17) mg/dL Glucose (74-99) mg/dL POC Glucose (mg/dL) 125 H (75-99) mg/dL Alkaline Phosphatase (38-126) U/L Total Protein (6.3-8.2) g/dL Albumin (3.5-5.0) g/dL Stool Occult Blood (Negative) Microbiology - Last 24 Hours (Table) 12/16/20 16:00 Stool Culture - Preliminary Stool Assessment and Plan (1) GI bleed Narrative/Plan: 80-year-old female presenting for evaluation of diarrhea reporting multiple dark black frequent bowel movements with some bright red blood mixed in. She has a known history of diverticulosis with last colonoscopy in 2016 and a remote history of EGD. She does take Excedrin as needed at home. She denies any abdominal pain. No nausea or vomiting. She was found to have an acute fall in her hemoglobin to 7.9 after presentation with positive testing for blood in the stool. Unclear etiology, may be related to peptic ulcer disease, esophagitis, gastritis, AVM, cannot exclude lower GI bleed such as right colonic diverticular bleed or other etiology. Current Visit: Yes Status: Acute Code(s): K92.2 - GASTROINTESTINAL HEMORRHAGE, UNSPECIFIED SNOMED Code(s): 04684650 (2) Anemia associated with acute blood loss Current Visit: Yes Status: Acute Code(s): D62 - ACUTE POSTHEMORRHAGIC ANEMIA SNOMED Code(s): 945640680 (3) Diarrhea Current Visit: Yes Status: Acute Code(s): R19.7 - DIARRHEA, UNSPECIFIED SNOMED Code(s): 57113792 Plan: Supportive care Clear liquid diet Nothing by mouth after midnight Continue Protonix IV twice daily Continue to monitor hemoglobin and hematocrit and transfuse as needed Bowel prep ordered Plan for EGD and colonoscopy for further evaluation tomorrow with all the risks, benefits and possible complications of the procedures explained to the patient at length with all of her questions answered to her satisfaction Avoid NSAID therapy Hold any anticoagulation therapy for now Testing for Clostridium difficile negative Date for allowing us to participate in the care of the patient
[2020-12-17 16:52] LABS: Glucose,Whole Blood 148 mg/dL (75-99)
--- NOTE | 2020-12-17 17:50 | P.PN ---
Subjective Progress Note Date: 12/17/20 This is a 80 years old female patient of Dr. Silva with past medical history of asthma, type 2 diabetes, GERD, hypertension comes in with multiple episodes of diarrhea starting this morning. Patient also notices black stool this morning. She denies any history of previous GI bleed. Last colonoscopy was 4 years ago had polyps removed Patient also had an EGD and has hiatal hernia but denied any history of gastric ulcers. She is currently under a lot of stress due to her being sick. Patient complains of mild epigastric discomfort like a hunger pains but no other abdominal pain. She denies any chest pain, dizziness, palpitation, shortness of breath, hematuria, burning micturition, back pain. She denies any recent use of blood thinners. She does take Excedrin for her arthritis 2 in the morning and 2 in the evening vitals reviewed in the ER suggested temp of 98.3 pulse 63 respiratory rate 16 blood pressure 154/60. Labs evaluated suggested a hemoglobin of 11.1, hematocrit 32.3, WBC 7, CMP with sodium 140 potassium 4.5 chloride 107 BUN 35 creatinine 0.79 glucose 133 UA is normal. EKG is reviewedrule out ACS. Appears sinus rhythm. 12/17 and patient examined bedside. Complains of slight distention in the abdomen and epigastric discomfort but denies any chest pain, shortness breath or dizziness. The patient had multiple bowel movements each appeared tired artery in character. Hemoglobin has dropped from 11-7.6. Continue IV fluids at 100 mL/h. CBC every 6 hours. Plan for EGD and colonoscopy tomorrow. Continue pantoprazole 40 mg IV twice a day ROS Constitutional: Denies chills, Denies fever, endorses weakness Eyes: denies decreased vision, denies diplopia, denies discharge, denies pain Ears: deny: decreased hearing Ears, nose, mouth and throat: Denies dental pain, Denies headache, Denies nasal discharge, Denies nose pain Cardiovascular: Denies chest pain, Denies decreased exercise tolerance, Denies edema, Denies high blood pressure, Denies irregular heart beat, Denies palpitations, Denies paroxysmal nocturnal dyspnea, Denies rapid heart beat, Denies shortness of breath Respiratory: Denies congestion, Denies cough, Denies cough with sputum, Denies dyspnea, Denies home oxygen, Denies wheezing Gastrointestinal: Endorses abdominal discomfort Denies change in bowel habits, Denies coffee ground emesis, Denies early satiety, Denies excessive gas, Denies heartburn, Denies hematemesis, Denies hematochezia, Denies loss of appetite, Denies nausea, Denies vomiting Genitourinary: Denies dysuria, Denies flank pain, Denies kidney stones, Denies menorrhagia, Denies urgency, Denies urinary frequency Musculoskeletal: Denies gait dysfunction, Denies limitation of motion, Denies morning stiffness, Denies muscle cramps Integumentary: Denies rash, Denies wounds, Denies brittle nails, Denies change in hair/nails, Denies darkening of skin Neurological: Denies balance difficulties, Denies change in speech, Denies double vision, Denies gait dysfunction, Denies loss of vision, Denies motor disturbance, Denies numbness, Denies paralysis, Denies paresthesias, Denies seizures Psychiatric: Denies anxiety, Denies depression Endocrine: Denies excessive sweating, Denies excessive thirst, Denies high blood sugars, Denies palpitations Hematologic/Lymphatic: Denies easy bruising, Denies lymphadenopathy Objective - Vital Signs Vital signs: Vital Signs Temp 98.0 F 12/17/20 12:23 Pulse 67 12/17/20 12:23 Resp 18 12/17/20 12:23 BP 132/83 12/17/20 12:23 Pulse Ox 96 12/17/20 12:23 Intake & Output 12/16/20 12/17/20 12/17/20 18:59 06:59 18:59 Intake Total 100 900 Balance 100 900 Weight 94 kg Intake: Intake, IV Titration 100 900 Amount Sodium Chloride 0.9% 1, 100 900 000 ml @ 75 mls/hr IV . [id number] ONE Rx#:[id number] Other: Voiding Method Toilet Toilet # Voids 1 4 # Bowel Movements 1 3 - Exam - Constitutional General appearance: cooperative, no acute distress, obese - EENT Eyes: anicteric sclerae, PERRLA, normal appearance ENT: hearing grossly normal - Neck Neck: no lymphadenopathy, normal ROM, no other, no rigidity, no stridor, no thyromegaly - Respiratory Respiratory: bilateral: CTA, negative: diminished, dullness, rales, rhonchi - Cardiovascular Rhythm: regular Heart sounds: normal: S1, S2 Abnormal Heart Sounds: 3/6 systolic murmur, no diastolic murmur, no rub, no S3 Gallop, no S4 Gallop, no click, no other - Gastrointestinal General gastrointestinal: normal bowel sounds, soft epigastric discomfort - Integumentary Integumentary: no rash - Neurologic Neurologic: No gross motor or sensory deficit - Musculoskeletal Musculoskeletal: gait normal, strength equal bilaterally - Psychiatric Psychiatric: A&O x's 3, appropriate affect - Labs CBC & Chem 7: 12/17/20 11:25 12/17/20 05:45 Labs: Abnormal Lab Results - Last 24 Hours (Table) 12/16/20 12/16/20 12/16/20 Range/Units 16:00 17:41 23:23 RBC 2.74 L 2.38 L (3.80-5.40) m/uL Hgb 8.8 L D 7.9 L (11.4-16.0) gm/dL Hct 26.7 L 23.2 L (34.0-46.0) % Chloride (98-107) mmol/L BUN (7-17) mg/dL Glucose (74-99) mg/dL POC Glucose (mg/dL) (75-99) mg/dL Alkaline Phosphatase (38-126) U/L Total Protein (6.3-8.2) g/dL Albumin (3.5-5.0) g/dL Stool Occult Blood Positive H (Negative) 12/17/20 12/17/20 12/17/20 Range/Units 05:45 05:45 07:29 RBC 2.47 L (3.80-5.40) m/uL Hgb 7.9 L (11.4-16.0) gm/dL Hct 24.1 L (34.0-46.0) % Chloride 114 H (98-107) mmol/L BUN 52 H (7-17) mg/dL Glucose 105 H (74-99) mg/dL POC Glucose (mg/dL) 109 H (75-99) mg/dL Alkaline Phosphatase 36 L (38-126) U/L Total Protein 4.8 L (6.3-8.2) g/dL Albumin 2.8 L (3.5-5.0) g/dL Stool Occult Blood (Negative) 12/17/20 12/17/20 12/17/20 Range/Units 11:25 12:05 16:49 RBC 2.43 L (3.80-5.40) m/uL Hgb 7.6 L (11.4-16.0) gm/dL Hct 23.7 L (34.0-46.0) % Chloride (98-107) mmol/L BUN (7-17) mg/dL Glucose (74-99) mg/dL POC Glucose (mg/dL) 125 H 148 H (75-99) mg/dL Alkaline Phosphatase (38-126) U/L Total Protein (6.3-8.2) g/dL Albumin (3.5-5.0) g/dL Stool Occult Blood (Negative) Microbiology - Last 24 Hours (Table) 12/16/20 16:00 Stool Culture - Preliminary Stool Assessment and Plan Plan: #1 acute GI bleed likely secondary to peptic ulcer disease. GI consult for possible EGD. CBCq12 . Pantoprazole 40 IV twice a day. Normal saline at 100mL per hour. EGD and colonoscopy tomorrow #2 acute diarrhea likely secondary to GI bleed. Inflammation markers ESR, CRP, LDHnormal COVID 19 negative. C. diff ordered stool neg #3 asthma pro-air as needed #4 GERD with history of hiatal hernia on pantoprazole 40 mg twice a day #5 diabetes type 2 controlled on metformin #6 depression controlled on citalopram 20 mg by mouth daily #7 hypertension controlled on metoprolol 50 mg daily hold Lasix in the morning Lasix 20 in the night can be given #8 CODE STATUS full code #9 DVT prophylaxis SCDs #10 disposition EGD colonoscopy tomorrow
[2020-12-17 18:46] LABS: Basophils # (A) 0.1 k/uL (0-0.2); Basophils % (A) 1 %; Eosinophils # (A) 0.3 k/uL (0-0.7); Eosinophils % (A) 4 %; HCT 24.9 % (34.0-46.0); HGB 8.1 gm/dL (11.4-16.0); Hypochromasia Slight; Lymphocytes # (A) 1.8 k/uL (1.0-4.8); Lymphocytes % (A) 21 %; MCHC 32.6 g/dL (31.0-37.0); Mean Platelet Volume 8.7; Monocytes # (A) 0.4 k/uL (0-1.0); Monocytes % (A) 5 %; Neutrophils # (A) 5.6 k/uL (1.3-7.7); Neutrophils % (A) 67 %; Platelet Count 233 k/uL (150-450); RBC 2.54 m/uL (3.80-5.40); RDW 14.7 % (11.5-15.5); WBC 8.3 k/uL (3.8-10.6)
[2020-12-17] MEDS: MONTELUKAST 10 MG TAB PO SCH (20:59)
[2020-12-17 21:22] LABS: Glucose,Whole Blood 133 mg/dL (75-99)
[2020-12-18] MEDS: MORPHINE SULFATE 4 MG/ML SYRINGE IVP PRN ×2 (04:42→17:26)
[2020-12-18] MEDS: SODIUM CHLORIDE 0.9% 1,000 ML IV SCH ×2 (07:01→15:37)
[2020-12-18] MEDS: MAGNESIUM OXIDE 400 MG TAB PO SCH (07:02)
[2020-12-18] MEDS: CALCIUM CARBONATE 500 MG CHEWABLE PO SCH ×2 (07:03→21:50)
[2020-12-18] MEDS: MULTIVITAMINS, THERA 1 EACH TAB PO SCH (07:03)
[2020-12-18] MEDS: VIT A,C & E-LUTEIN-MINERALS 1 EACH TAB PO SCH ×2 (07:03→22:28)
[2020-12-18 07:14] LABS: Glucose,Whole Blood 113 mg/dL (75-99)
[2020-12-18 07:24] LABS: ALT 10 U/L (4-34); AST 18 U/L (14-36); African American GFR (CKD) >90 (>60 ml/min/1.73 sqM); Albumin 2.6 g/dL (3.5-5.0); Albumin/Globulin Ratio 1.3; Alkaline Phosphatase 39 U/L (38-126); Anion Gap 3 mmol/L; Basophils % (A) 1 %; Blood Urea Nitrogen 24 mg/dL (7-17); Calcium 8.1 mg/dL (8.4-10.2); Carbon Dioxide 27 mmol/L (22-30); Chloride 112 mmol/L (98-107); Eosinophils # (A) 0.3 k/uL (0-0.7); Eosinophils % (A) 7 %; Glucose 101 mg/dL (74-99); HCT 20.2 % (34.0-46.0); Hypochromasia Slight; Lymphocytes # (A) 1.4 k/uL (1.0-4.8); Lymphocytes % (A) 31 %; MCH 32.4 pg (25.0-35.0); MCHC 32.9 g/dL (31.0-37.0); MCV 98.6 fL (80.0-100.0); Macrocytosis Slight; Mean Platelet Volume 8.8; Monocytes # (A) 0.3 k/uL (0-1.0); Monocytes % (A) 7 %; Neutrophils # (A) 2.3 k/uL (1.3-7.7); Neutrophils % (A) 52 %; Non-African American GFR(CKD) 78 (>60 ml/min/1.73 sqM); Platelet Count 191 k/uL (150-450); Potassium 3.8 mmol/L (3.5-5.1); RBC 2.04 m/uL (3.80-5.40); RDW 14.9 % (11.5-15.5); Sodium 142 mmol/L (137-145); Total Bilirubin 0.2 mg/dL (0.2-1.3); Total Protein 4.6 g/dL (6.3-8.2); WBC 4.4 k/uL (3.8-10.6)
[2020-12-18 07:32] LABS: HGB 6.6 gm/dL (11.4-16.0)
[2020-12-18] MEDS: METOPROLOL SUCCINATE (ER) 50 MG TAB.ER.24H PO SCH (08:52)
[2020-12-18] MEDS: CITALOPRAM HYDROBROMIDE 20 MG TAB PO SCH (08:52)
[2020-12-18] MEDS: ARTIFICIAL TEARS-HYPROMELLOSE DROPS 15 ML BTL BOTH EYES SCH ×2 (08:53→21:51)
[2020-12-18] MEDS: KETOTIFEN 0.025% OPHTH DROPS 5 ML BTL BOTH EYES SCH ×2 (08:53→21:51)
[2020-12-18] MEDS: PANTOPRAZOLE 40 MG/10 ML VIAL IVP SCH ×2 (11:11→21:50)
[2020-12-18 11:29] LABS: Glucose,Whole Blood 112 mg/dL (75-99)
--- NOTE | 2020-12-18 12:45 | P.PN ---
Subjective Progress Note Date: 12/18/20 This is a 80 years old female patient of Dr. Silva with past medical history of asthma, type 2 diabetes, GERD, hypertension comes in with multiple episodes of diarrhea starting this morning. Patient also notices black stool this morning. She denies any history of previous GI bleed. Last colonoscopy was 4 years ago had polyps removed Patient also had an EGD and has hiatal hernia but denied any history of gastric ulcers. She is currently under a lot of stress due to her being sick. Patient complains of mild epigastric discomfort like a hunger pains but no other abdominal pain. She denies any chest pain, dizziness, palpitation, shortness of breath, hematuria, burning micturition, back pain. She denies any recent use of blood thinners. She does take Excedrin for her arthritis 2 in the morning and 2 in the evening vitals reviewed in the ER suggested temp of 98.3 pulse 63 respiratory rate 16 blood pressure 154/60. Labs evaluated suggested a hemoglobin of 11.1, hematocrit 32.3, WBC 7, CMP with sodium 140 potassium 4.5 chloride 107 BUN 35 creatinine 0.79 glucose 133 UA is normal. EKG is reviewedrule out ACS. Appears sinus rhythm. 12/17 and patient examined bedside. Complains of slight distention in the abdomen and epigastric discomfort but denies any chest pain, shortness breath or dizziness. The patient had multiple bowel movements each appeared tired artery in character. Hemoglobin has dropped from 11-7.6. Continue IV fluids at 100 mL/h. CBC every 6 hours. Plan for EGD and colonoscopy tomorrow. Continue pantoprazole 40 mg IV twice a day 12/18 patient examined bedside. Denies any frequent episodes of bowel movement. Had 4 bowel movements yesterday normal bowel movement this morning. She denies any abdominal pain or nausea or vomiting. Patient appears very fatigued from loss of blood. Medicine was evaluated this morning patient is afebrile pulse 90 respiratory rate 17 and blood pressure 126/76 labs reviewed patient's hemoglobin dropped to 6.6 sodium 142 potassium 3.8 chloride 112 BUN 24 creatinine 0.74. Patient received 1 unit of PRBC and continues to be on Protonix 40 IV twice a day with plan to get EGD and colonoscopy today. ROS Constitutional: Denies chills, Denies fever, endorses weakness Eyes: denies decreased vision, denies diplopia, denies discharge, denies pain Ears: deny: decreased hearing Ears, nose, mouth and throat: Denies dental pain, Denies headache, Denies nasal discharge, Denies nose pain Cardiovascular: Denies chest pain, Denies decreased exercise tolerance, Denies edema, Denies high blood pressure, Denies irregular heart beat, Denies palpitations, Denies paroxysmal nocturnal dyspnea, Denies rapid heart beat, Denies shortness of breath Respiratory: Denies congestion, Denies cough, Denies cough with sputum, Denies dyspnea, Denies home oxygen, Denies wheezing Gastrointestinal Abdominal pain resolved Denies change in bowel habits, Denies coffee ground emesis, Denies early satiety, Denies excessive gas, Denies heartburn, Denies hematemesis, Denies hematochezia, Denies loss of appetite, Denies nausea, Denies vomitingPositive for dark tarry stool Genitourinary: Denies dysuria, Denies flank pain, Denies kidney stones, Denies menorrhagia, Denies urgency, Denies urinary frequency Musculoskeletal: Denies gait dysfunction, Denies limitation of motion, Denies morning stiffness, Denies muscle cramps Integumentary: Denies rash, Denies wounds, Denies brittle nails, Denies change in hair/nails, Denies darkening of skin Neurological: Denies balance difficulties, Denies change in speech, Denies double vision, Denies gait dysfunction, Denies loss of vision, Denies motor disturbance, Denies numbness, Denies paralysis, Denies paresthesias, Denies seizures Psychiatric: Denies anxiety, Denies depression Endocrine: Denies excessive sweating, Denies excessive thirst, Denies high blood sugars, Denies palpitations Hematologic/Lymphatic: Denies easy bruising, Denies lymphadenopathy Objective - Vital Signs Vital signs: Vital Signs Temp 97.7 F 12/18/20 11:39 Pulse 90 12/18/20 11:39 Resp 17 12/18/20 11:39 BP 126/76 12/18/20 11:39 Pulse Ox 96 12/18/20 11:39 Intake & Output 12/17/20 12/18/20 12/18/20 18:59 06:59 18:59 Intake Total 1200 310 Balance 1200 310 Intake: Intake, IV Titration 1200 Amount Sodium Chloride 0.9% 1, 1200 000 ml @ 100 mls/hr IV . Q10H [facility] Rx#:[id number] Blood Product 310 Rc As-1 Unit 310 [id number] Other: Voiding Method Toilet Toilet # Voids 2 3 # Bowel Movements 6 4 - Exam - Constitutional General appearance: cooperative, no acute distress, obese - EENT Eyes: anicteric sclerae, PERRLA, normal appearance ENT: hearing grossly normal - Neck Neck: no lymphadenopathy, normal ROM, no other, no rigidity, no stridor, no thyromegaly - Respiratory Respiratory: bilateral: CTA, negative: diminished, dullness, rales, rhonchi - Cardiovascular Rhythm: regular Heart sounds: normal: S1, S2 Abnormal Heart Sounds: 3/6 systolic murmur, no diastolic murmur, no rub, no S3 Gallop, no S4 Gallop, no click, no other - Gastrointestinal General gastrointestinal: normal bowel sounds, soft nontender on palpation - Integumentary Integumentary: no rash - Neurologic Neurologic: No gross motor or sensory deficit - Musculoskeletal Musculoskeletal: gait normal, strength equal bilaterally - Psychiatric Psychiatric: A&O x's 3, appropriate affect - Labs CBC & Chem 7: 12/18/20 06:19 12/18/20 06:19 Labs: Abnormal Lab Results - Last 24 Hours (Table) 12/16/20 12/17/20 12/17/20 Range/Units 10:40 16:49 18:34 RBC 2.54 L (3.80-5.40) m/uL Hgb 8.1 L (11.4-16.0) gm/dL Hct 24.9 L (34.0-46.0) % Chloride (98-107) mmol/L BUN (7-17) mg/dL Glucose (74-99) mg/dL POC Glucose (mg/dL) 148 H (75-99) mg/dL Calcium (8.4-10.2) mg/dL Total Protein (6.3-8.2) g/dL Albumin (3.5-5.0) g/dL Crossmatch See Detail 12/17/20 12/18/20 12/18/20 Range/Units 21:20 06:19 06:19 RBC 2.04 L (3.80-5.40) m/uL Hgb 6.6 L* D (11.4-16.0) gm/dL Hct 20.2 L (34.0-46.0) % Chloride 112 H (98-107) mmol/L BUN 24 H (7-17) mg/dL Glucose 101 H (74-99) mg/dL POC Glucose (mg/dL) 133 H (75-99) mg/dL Calcium 8.1 L (8.4-10.2) mg/dL Total Protein 4.6 L (6.3-8.2) g/dL Albumin 2.6 L (3.5-5.0) g/dL Crossmatch 12/18/20 12/18/20 Range/Units 07:13 11:28 RBC (3.80-5.40) m/uL Hgb (11.4-16.0) gm/dL Hct (34.0-46.0) % Chloride (98-107) mmol/L BUN (7-17) mg/dL Glucose (74-99) mg/dL POC Glucose (mg/dL) 113 H 112 H (75-99) mg/dL Calcium (8.4-10.2) mg/dL Total Protein (6.3-8.2) g/dL Albumin (3.5-5.0) g/dL Crossmatch Assessment and Plan Plan: #1 acute GI bleed likely secondary to peptic ulcer disease. GI consult for possible EGD. CBCq12 . Hemoglobin dropped to 6.6 status post 1 unit PRBC on 12/18 Pantoprazole 40 IV twice a day. Normal saline at 100mL per hour. EGD and colonoscopy today #2 acute diarrhea likely secondary to GI bleed. Inflammation markers ESR, CRP, LDHnormal COVID 19 negative. C. diff ordered stool neg #3 asthma pro-air as needed #4 GERD with history of hiatal hernia on pantoprazole 40 mg twice a day #5 diabetes type 2 controlled on metformin #6 depression controlled on citalopram 20 mg by mouth daily #7 hypertension controlled on metoprolol 50 mg daily hold Lasix in the morning Lasix 20 in the night can be given #8 CODE STATUS full code #9 DVT prophylaxis SCDs #10 [facility] 2 days
[2020-12-18] MEDS ORDERED: IV FLUID CONTINUATION 1,000 ML IV ONE ×2 (13:18)
[2020-12-18] MEDS ORDERED: PROPOFOL 10 MG/ML 20 ML VIAL IV ONE (13:19)
[2020-12-18] MEDS ORDERED: LIDOCAINE 1% INJ 10MG/ML (20 ML MDV) ONE (13:19)
--- NOTE | 2020-12-18 13:56 | P.PCN ---
Date of Procedure: 12/18/20 Description of Procedure: Brief history: 80-year-old female with a medical history significant for GERD, hypertension, diabetes mellitus and asthma who presented to the hospital for evaluation of diarrhea. The patient reports multiple episodes of dark colored bowel movements. She denies any associated abdominal pain with her symptoms. She denies any nausea or vomiting. She reports diarrhea starting yesterday with approximately 10-15 watery, loose bowel movements. She did report seeing some bright red blood per rectum which subsequently turned dark. No sick contacts, antibiotic therapy or exposures are reported. She has previously had an EGD. The patient does take Protonix daily at home. She also takes Excedrin. No prior history of GI bleed. She did have a colonoscopy in 2016 with findings of scattered sigmoid diverticulosis and does have a history of prior colonic polyps. Testing for Clostridium difficile was negative. Testing for occult blood was positive. Patient's hemoglobin which was 11 on presentation subsequently fell to 7.9. Procedure performed: Esophagogastroduodenoscopy with biopsy Colonoscopy Estimated blood loss: Minimal. Preoperative diagnosis: Anemia of acute blood loss, melena, GI bleed, last colonoscopy 2015. Anesthesia: MAC Procedure: After informed consent was obtained from the patient was brought into the endoscopy unit and IV sedation was administered by anesthesia under continuous monitoring. Initially upper endoscopy was done. The Olympus GF 190 video endoscope was inserted into the mouth and esophagus intubated without any difficulty and was gradually advanced into the stomach and duodenum and carefully examined. The bulb and second part of the duodenum appeared normal, with biopsies taken. The scope was then withdrawn into the stomach adequately insufflated with air and upon careful examination the antrum and body, cardia and fundus appeared normal, except for a 9 mm cratered nonbleeding antral ulcer without high-risk stigmata for bleeding which was biopsied. Biopsies were also taken of the antrum body. The scope was then withdrawn into the esophagus. The GE junction was located at 40 cm to the incisors. It appeared regular with no erythema erosions or ulcerations. Rest of the esophagus appeared normal. Patient tolerated the procedure well. At this time the patient continued to remain sedation. Initial digital rectal examination was normal. Olympus CF 190 video colonoscope was then inserted into the rectum and gradually advanced to the cecum without any difficulty. Careful examination was performed as the scope was gradually being withdrawn. The prep was fair with some semi-solid stool noted in the right colon which was lavaged. The cecum, ascending colon, transverse colon, descending colon, sigmoid colon and rectum which was able to be visualized appeared normal, with a a few scattered diverticula noted in the sigmoid colon. Retroflexion was performed in the rectum and no lesions were noted. Patient tolerated the procedure well. Impression: 1. Cratered nonbleeding antral ulcer without any high risk stigmata of bleeding. Biopsies of the duodenum, antrum and body and antral ulcer. 2. Visualized colon from the rectum to cecum and terminal ileum all appeared normal with no active bleeding or old blood noted. Mild sigmoid diverticulosis. Recommendations: Findings of this examination were discussed with the patient as well as the medical team. Okay to resume diet. Avoid NSAID use including Excedrin. Continue Protonix 40 mg twice daily. Continue to monitor hemoglobin and hematocrit and transfuse as needed okay for diet as tolerated. Okay for discharge when otherwise medically stable.
[2020-12-18 16:54] LABS: Basophils % (A) 1 %; Eosinophils # (A) 0.3 k/uL (0-0.7); Eosinophils % (A) 6 %; HCT 23.9 % (34.0-46.0); Lymphocytes # (A) 1.4 k/uL (1.0-4.8); Lymphocytes % (A) 33 %; MCH 32.7 pg (25.0-35.0); MCHC 33.5 g/dL (31.0-37.0); MCV 97.6 fL (80.0-100.0); Mean Platelet Volume 8.3; Monocytes # (A) 0.3 k/uL (0-1.0); Monocytes % (A) 6 %; Neutrophils # (A) 2.2 k/uL (1.3-7.7); Neutrophils % (A) 52 %; Platelet Count 192 k/uL (150-450); RBC 2.45 m/uL (3.80-5.40); RDW 14.6 % (11.5-15.5); WBC 4.3 k/uL (3.8-10.6)
[2020-12-18 17:13] LABS: Glucose,Whole Blood 131 mg/dL (75-99)
[2020-12-18 20:06] VITALS: RESP 16
[2020-12-18 21:24] LABS: Glucose,Whole Blood 113 mg/dL (75-99)
[2020-12-18] MEDS: MONTELUKAST 10 MG TAB PO SCH (21:51)
[2020-12-19] MEDS: MORPHINE SULFATE 4 MG/ML SYRINGE IVP PRN (00:01)
[2020-12-19] MEDS: SODIUM CHLORIDE 0.9% 1,000 ML IV SCH ×2 (00:02→09:23)
[2020-12-19 06:02] VITALS: BP 152/72; PULSE 89; TEMP 98.3
[2020-12-19 07:05] LABS: Glucose,Whole Blood 104 mg/dL (75-99)
[2020-12-19] MEDS: VIT A,C & E-LUTEIN-MINERALS 1 EACH TAB PO SCH (09:23)
[2020-12-19] MEDS: CALCIUM CARBONATE 500 MG CHEWABLE PO SCH (09:23)
[2020-12-19] MEDS: ARTIFICIAL TEARS-HYPROMELLOSE DROPS 15 ML BTL BOTH EYES SCH (09:23)
[2020-12-19] MEDS: MAGNESIUM OXIDE 400 MG TAB PO SCH (09:24)
[2020-12-19] MEDS: METOPROLOL SUCCINATE (ER) 50 MG TAB.ER.24H PO SCH (09:24)
[2020-12-19] MEDS: PANTOPRAZOLE 40 MG/10 ML VIAL IVP SCH (09:24)
[2020-12-19] MEDS: MULTIVITAMINS, THERA 1 EACH TAB PO SCH (09:24)
[2020-12-19] MEDS: CITALOPRAM HYDROBROMIDE 20 MG TAB PO SCH (09:24)
[2020-12-19] MEDS: KETOTIFEN 0.025% OPHTH DROPS 5 ML BTL BOTH EYES SCH (09:24)
--- NOTE | 2020-12-19 12:42 | P.PN ---
Subjective Progress Note Date: 12/19/20 Principal diagnosis: GI bleed The patient is seen and examined lying in bed. She states she has feeling better today with more energy. She denies any abdominal pain, nausea, or vomiting. She is status post EGD and colonoscopy. EGD findings included a cratered nonbleeding antral ulcer without any high-risk stigmata of bleeding. Biopsies taken. Colonoscopy revealed a normal colon from rectum to cecum and terminal ileum with no active bleeding or old blood noted. There is mild sigmoid diverticulosis. Objective - Vital Signs Vital signs: Vital Signs Temp 98.3 F 12/19/20 05:00 Pulse 89 12/19/20 05:00 Resp 16 12/19/20 05:00 BP 152/72 12/19/20 05:00 Pulse Ox 92 L 12/19/20 05:00 Intake & Output 12/18/20 12/19/20 12/19/20 18:59 06:59 18:59 Intake Total 710 Balance 710 Intake: IV 400 Blood Product 310 Rc As-1 Unit 310 [id number] Other: Voiding Method Toilet Toilet - Exam General appearance: The patient is alert, oriented, appears in no acute distress. HET: Head is normocephalic and atraumatic. Conjunctiva pink. Sclera anicteric. Neck: Supple without lymphadenopathy. Abdomen: Soft, nontender, nondistended with bowel sounds. No guarding or rigidity. Extremities: Normal skin color and turgor. No pedal edema Skin: No rashes, no jaundice Neurological: No focal deficits. Alert and oriented 3. - Labs CBC & Chem 7: 12/18/20 15:39 12/18/20 06:19 Labs: Abnormal Lab Results - Last 24 Hours (Table) 12/16/20 12/18/20 12/18/20 Range/Units 10:40 11:28 15:39 RBC 2.45 L (3.80-5.40) m/uL Hgb 8.0 L (11.4-16.0) gm/dL Hct 23.9 L (34.0-46.0) % POC Glucose (mg/dL) 112 H (75-99) mg/dL Crossmatch See Detail 12/18/20 12/18/20 12/19/20 Range/Units 17:05 21:23 07:03 RBC (3.80-5.40) m/uL Hgb (11.4-16.0) gm/dL Hct (34.0-46.0) % POC Glucose (mg/dL) 131 H 113 H 104 H (75-99) mg/dL Crossmatch Microbiology - Last 24 Hours (Table) 12/16/20 16:00 Stool Culture - Preliminary Stool Assessment and Plan (1) GI bleed Narrative/Plan: 80-year-old female presenting to the emergency department for evaluation of diarrhea. She reported multiple dark black frequent bowel movements for some bright red blood mixed in it. She has a known history of diverticulosis with last colonoscopy in 2016 remote history of EGD. She does take Excedrin as needed at home. She denies any abdominal pain. No nausea or vomiting. She was found to have an acute fall in her hemoglobin to 7.9 after presentation with positive testing for blood in the stool. Unclear etiology may be related to peptic ulcer disease, esophagitis, gastritis, AVM, cannot exclude lower GI bleed such as right colonic diverticular bleed or other etiology. The patient is status post EGD and colonoscopy. EGD showed cratered nonbleeding antral ulcer without any high-risk stigmata of bleeding. Biopsies taken. Visualized colon from rectum to cecum and terminal ileum all appear normal with no active bleeding or old blood noted. Mild sigmoid diverticulosis. Current Visit: Yes Status: Acute Code(s): K92.2 - GASTROINTESTINAL HEMORRHAGE, UNSPECIFIED SNOMED Code(s): 95369925 (2) Anemia associated with acute blood loss Current Visit: Yes Status: Acute Code(s): D62 - ACUTE POSTHEMORRHAGIC ANEMIA SNOMED Code(s): 038018327 (3) Diarrhea Current Visit: Yes Status: Acute Code(s): R19.7 - DIARRHEA, UNSPECIFIED SNOMED Code(s): 94790325 Plan: Supportive care Continue diet as tolerated Continue Protonix 40 mg twice a day Continue to monitor hemoglobin and hematocrit, transfuse as needed Patient is status post EGD and colonoscopy Avoid NSAID therapy Testing for Clostridium difficile negative Patient may be discharged home from a gastroenterology standpoint once otherwise medically cleared. Patient to follow-up for biopsy results in 2-3 weeks. Thank you for this consultation, we will continue to follow Dr. Cohen I agree with the dictator's note, documented as a scribe by Alejandra Bae
--- NOTE | 2020-12-19 14:41 | P.DS ---
Providers Date of admission: 12/16/20 11:47 Expected date of discharge: 12/19/20 Attending physician: Portillo Sarmiento MD Consults: 12/16/20 11:47 Consult Physician Urgent Consulting Provider: Gris Young Consult Reason/Comments: GI bleed Do you want consulting provider notified?: Yes Primary care physician: [facility] Course: This is a 80 years old female patient of Dr. Silva with past medical history of asthma, type 2 diabetes, GERD, hypertension comes in with multiple episodes of diarrhea starting this morning. Patient also notices black stool this morning. She denies any history of previous GI bleed. Last colonoscopy was 4 years ago had polyps removed Patient also had an EGD and has hiatal hernia but denied any history of gastric ulcers. She is currently under a lot of stress due to her being sick. Patient complains of mild epigastric discomfort like a hunger pains but no other abdominal pain. She denies any chest pain, dizziness, palpitation, shortness of breath, hematuria, burning micturition, back pain. She denies any recent use of blood thinners. She does take Excedrin for her arthritis 2 in the morning and 2 in the evening vitals reviewed in the ER suggested temp of 98.3 pulse 63 respiratory rate 16 blood pressure 154/60. Labs evaluated suggested a hemoglobin of 11.1, hematocrit 32.3, WBC 7, CMP with sodium 140 potassium 4.5 chloride 107 BUN 35 creatinine 0.79 glucose 133 UA is normal. EKG is reviewedrule out ACS. Appears sinus rhythm. 12/17 and patient examined bedside. Complains of slight distention in the abdomen and epigastric discomfort but denies any chest pain, shortness breath or dizziness. The patient had multiple bowel movements each appeared tired artery in character. Hemoglobin has dropped from 11-7.6. Continue IV fluids at 100 mL/h. CBC every 6 hours. Plan for EGD and colonoscopy tomorrow. Continue pantoprazole 40 mg IV twice a day 12/18 patient examined bedside. Denies any frequent episodes of bowel movement. Had 4 bowel movements yesterday normal bowel movement this morning. She denies any abdominal pain or nausea or vomiting. Patient appears very fatigued from loss of blood. Medicine was evaluated this morning patient is afebrile pulse 90 respiratory rate 17 and blood pressure 126/76 labs reviewed patient's hemoglobin dropped to 6.6 sodium 142 potassium 3.8 chloride 112 BUN 24 creatinine 0.74. Patient received 1 unit of PRBC and continues to be on Protonix 40 IV twice a day with plan to get EGD and colonoscopy today. 12/19: Patient underwent EGD and colonoscopy yesterday. Was found to have cratered nonbleeding antral ulcer without any high-risk stigmata of bleeding, colon appeared normal with no active bleeding or old blood noted, mild sigmoid diverticulosis. Last hemoglobin was 8.0, creatinine 0.74l BUN 24. Vital signs are stable, she is afebrile temp is 98.3, heart rate 89, respiratory 16, blood pressure 152/72. She'll be discharged home to resume on pantoprazole 40 mg twice a day. Discharge diagnoses #1 acute GI bleed #2 acute diarrhea #3 asthma #4 GERD with history of hiatal hernia #5 diabetes type 2 #6 depression #7 hypertension The above impression and plan of care have been discussed and directed by signing physician. Shanique Bazan nurse practitioner acting as scribe for signing physician. Plan - Discharge Summary Discharge Rx Participant: No New Discharge Prescriptions: Continue metFORMIN HCL [Glucophage] 500 mg PO BID Multivitamins, Thera [Multivitamin (formulary)] 1 tab PO DAILY Montelukast [Singulair] 10 mg PO HS Citalopram Hydrobromide [Citalopram HBr] 20 mg PO DAILY Cinnamon Bark [Cinnamon] 500 mg PO TID Albuterol Sulfate [Proventil Hfa] 2 puff INHALATION RT-Q6H PRN PRN Reason: Shortness Of Breath Calcium Carbonate [Calcium] 600 mg PO BID Propylene Glycol/Peg 400/Pf [Systane 0.3-0.4% Eye Drop] 1 drop BOTH EYES BID Metoprolol Succinate (ER) [Toprol XL] 50 mg PO DAILY Niacin 500 mg PO BID Vit C/E/Zn/Coppr/Lutein/Zeaxan [Preservision Areds 2 Softgel] 1 cap PO BID Ketotifen 0.025% Ophth Soln [Zaditor] 1 drop BOTH EYES BID Magnesium 250 mg PO DAILY Changed Pantoprazole [Protonix] 40 mg PO BID #60 tab Discontinued Furosemide [Lasix] 40 mg PO DAILY Furosemide [Lasix] 20 mg PO HS Potassium Gluconate 99 mg PO BID [id number] [Excedrin] 2 tab PO Q6H PRN PRN Reason: Pain Discharge Medication List Albuterol Sulfate [Proventil Hfa] 2 puff INHALATION RT-Q6H PRN 05/27/16 [History] Cinnamon Bark [Cinnamon] 500 mg PO TID 05/27/16 [History] Citalopram Hydrobromide [Citalopram HBr] 20 mg PO DAILY 05/27/16 [History] Montelukast [Singulair] 10 mg PO HS 05/27/16 [History] Multivitamins, Thera [Multivitamin (formulary)] 1 tab PO DAILY 05/27/16 [History] metFORMIN HCL [Glucophage] 500 mg PO BID 05/27/16 [History] Calcium Carbonate [Calcium] 600 mg PO BID 05/18/18 [History] Ketotifen 0.025% Ophth Soln [Zaditor] 1 drop BOTH EYES BID 12/16/20 [History] Magnesium 250 mg PO DAILY 12/16/20 [History] Metoprolol Succinate (ER) [Toprol XL] 50 mg PO DAILY 12/16/20 [History] Niacin 500 mg PO BID 12/16/20 [History] Propylene Glycol/Peg 400/Pf [Systane 0.3-0.4% Eye Drop] 1 drop BOTH EYES BID 12/16/20 [History] Vit C/E/Zn/Coppr/Lutein/Zeaxan [Preservision Areds 2 Softgel] 1 cap PO BID 12/16/20 [History] Pantoprazole [Protonix] 40 mg PO BID #60 tab 12/19/20 [Rx] Follow up Appointment(s)/Referral(s): Rolf Houston MD [Primary Care Provider] - 12/20/20 1:45 pm Scotty Cohen MD [STAFF PHYSICIAN] - 12/31/20 11:00 am Discharge Disposition: HOME SELF-CARE
== END 2020-12-19 13:11 | disposition home or self-care (01) | DRG 378 ==
LOC: EC 09:19 → 5NMEDONC 11:47
PROVIDERS: ADMIT Internal Medicine; ATTEND Internal Medicine
PROC: 0DB78ZX Excision of Stomach, Pylorus, Via Natural or Artificial Opening Endoscopic, Diagnostic (ICD-10-PCS; principal; 2020-12-18 12:35)
PROC: 0DJD8ZZ Inspection of Lower Intestinal Tract, Via Natural or Artificial Opening Endoscopic (ICD-10-PCS; principal; 2020-12-18 12:35)
PROC: 0DB98ZX Excision of Duodenum, Via Natural or Artificial Opening Endoscopic, Diagnostic (ICD-10-PCS; principal; 2020-12-18 12:35)
PROC: 0DB68ZX Excision of Stomach, Via Natural or Artificial Opening Endoscopic, Diagnostic (ICD-10-PCS; principal; 2020-12-18 12:35)
DX: K92.1 Melena (principal); D62 Acute posthemorrhagic anemia; E11.9 Type 2 diabetes mellitus without complications; Z87.891 Personal history of nicotine dependence; F32.9 Major depressive disorder, single episode, unspecified; F41.9 Anxiety disorder, unspecified; I10 Essential (primary) hypertension; J45.909 Unspecified asthma, uncomplicated; K21.9 Gastro-esophageal reflux disease without esophagitis; K25.9 Gastric ulcer, unspecified as acute or chronic, without hemorrhage or perforation; K44.9 Diaphragmatic hernia without obstruction or gangrene; K57.30 Diverticulosis of large intestine without perforation or abscess without bleeding; M19.90 Unspecified osteoarthritis, unspecified site; Z20.822 Contact with and (suspected) exposure to COVID-19; Z79.84 Long term (current) use of oral hypoglycemic drugs; Z79.899 Other long term (current) drug therapy; Z79.82 Long term (current) use of aspirin; Z85.828 Personal history of other malignant neoplasm of skin; Z87.19 Personal history of other diseases of the digestive system; Z90.710 Acquired absence of both cervix and uterus; Z90.89 Acquired absence of other organs; Z90.49 Acquired absence of other specified parts of digestive tract; Z98.42 Cataract extraction status, left eye; Z98.41 Cataract extraction status, right eye; Z88.6 Allergy status to analgesic agent; Z88.0 Allergy status to penicillin; Z88.8 Allergy status to other drugs, medicaments and biological substances; Z80.9 Family history of malignant neoplasm, unspecified; Z86.010 Personal history of colon polyps
CPT/HCPCS: 36415; 43239; 45378; 80053; 81003; 82150; 82272; 82728; 83615; 83690; 85025; 85027; 85610; 85652; 85730; 86140; 86850; 86900; 86901; 86920; 87045; 87046; 87324; 87636; 88305; 93005; 94640; 96360; 96361; 99285

== ENCOUNTER 2021-05-06 05:40 | Day surgery (SDC) | payer MEDICARE, BC ==
[2021-05-02 13:32] VITALS: BMI 32.5
[2021-05-06] MEDS ORDERED: SODIUM CHLORIDE 0.9% 1,000 ML in EMPTY BAG 1 BAG IV ONE (05:52)
[2021-05-06] MEDS ORDERED: NITROGLYCERIN SL TABS 0.4 MG TAB SUBLINGUAL PRN (05:52)
[2021-05-06] MEDS ORDERED: ALPRAZolam 0.5 MG TAB PO PRN (05:52)
[2021-05-06] MEDS ORDERED: ALPRAZolam 0.25 MG TAB PO PRN (05:52)
[2021-05-06] MEDS ORDERED: ASPIRIN 325 MG TAB PO STA (05:52)
[2021-05-06 06:55] LABS: Basophils # (A) 0.1 k/uL (0-0.2); Basophils % (A) 2 %; Eosinophils # (A) 0.4 k/uL (0-0.7); Eosinophils % (A) 7 %; HGB 13.7 gm/dL (11.4-16.0); Lymphocytes # (A) 1.4 k/uL (1.0-4.8); Lymphocytes % (A) 23 %; MCH 30.9 pg (25.0-35.0); MCHC 32.5 g/dL (31.0-37.0); MCV 94.9 fL (80.0-100.0); Mean Platelet Volume 8.7; Monocytes # (A) 0.3 k/uL (0-1.0); Monocytes % (A) 6 %; Neutrophils # (A) 3.7 k/uL (1.3-7.7); Neutrophils % (A) 62 %; Platelet Count 220 k/uL (150-450); RBC 4.43 m/uL (3.80-5.40)
[2021-05-06 07:00] VITALS: RESP 16; TEMP 98.3
[2021-05-06] MEDS ORDERED: LIDOCAINE 1% INJ 10MG/ML (20 ML MDV) ONE (07:05)
[2021-05-06] MEDS ORDERED: VERAPAMIL 2.5 MG/ML 2 ML AMP ONE (07:05)
[2021-05-06] MEDS ORDERED: HEPARIN SODIUM 1,000 UN/ML (10ML VL) ONE (07:06)
[2021-05-06] MEDS ORDERED: fentaNYL (PF) 50 MCG/ML 2 ML AMP ONE (07:06)
[2021-05-06 07:09] LABS: Calcium 9.3 mg/dL (8.4-10.2)
[2021-05-06] MEDS ORDERED: fentaNYL (PF) 50 MCG/ML 2 ML AMP IV ONE (07:24)
[2021-05-06] MEDS: MIDAZOLAM 2 MG/2 ML VIAL IV ONE ×2 (07:29→07:35)
[2021-05-06] MEDS ORDERED: LIDOCAINE 1% INJ 10MG/ML (20 ML MDV) SQ ONE (07:36)
[2021-05-06] MEDS ORDERED: VERAPAMIL SYRINGE (5 MG/10 ML) INTRAARTER ONE (07:37)
[2021-05-06] MEDS ORDERED: HEPARIN SODIUM 1,000 UN/ML (10ML VL) IV ONE (07:42)
[2021-05-06] MEDS ORDERED: IOPAMIDOL-370 125ML BTL INJ ONE (07:48)
[2021-05-06] MEDS ORDERED: RX INFO: IV CONTRAST WAS GIVEN 1 EACH MISC MISCELLANE PRN (08:04)
[2021-05-06] MEDS ORDERED: ALBUTEROL NEBULIZED 2.5 MG/3 ML INHALATION PRN (08:05)
[2021-05-06] MEDS ORDERED: PANTOPRAZOLE 40 MG TABLET PO STA (08:13)
[2021-05-06] MEDS ORDERED: METOPROLOL SUCCINATE (ER) 50 MG TAB.ER.24H PO STA (08:13)
[2021-05-06] MEDS ORDERED: SODIUM CHLORIDE 0.9% 1,000 ML IV SCH (08:15)
[2021-05-06] MEDS ORDERED: NON FORMULARY DRUG (Propylene Glycol/Peg 400/Pf [Systane 0.3-0.4% Eye Drop] 1 EACH Dropere BOTH EYES SCH (09:00)
[2021-05-06] MEDS ORDERED: NON FORMULARY DRUG (Vit C/E/Zn/Coppr/Lutein/Zeaxan [Preservision Areds 2 Softgel] 1 EACH C PO SCH (09:00)
[2021-05-06] MEDS ORDERED: MULTIVITAMINS, THERA 1 EACH TAB PO SCH (09:00)
[2021-05-06] MEDS ORDERED: KETOTIFEN 0.025% OPHTH DROPS 5 ML BTL BOTH EYES SCH (09:00)
[2021-05-06] MEDS ORDERED: METOPROLOL SUCCINATE (ER) 50 MG TAB.ER.24H PO SCH (09:00)
[2021-05-06] MEDS ORDERED: NON FORMULARY DRUG (Magnesium [Magnesium] 250 MG Tablet) PO SCH (09:00)
[2021-05-06] MEDS ORDERED: PANTOPRAZOLE 40 MG TABLET PO SCH (09:00)
[2021-05-06] MEDS ORDERED: EZETIMIBE 10 MG TAB PO SCH (09:00)
[2021-05-06] MEDS ORDERED: NON FORMULARY DRUG (Niacin [Niacin] 500 MG Tablet) PO SCH (09:00)
--- NOTE | 2021-05-06 12:23 | CC ---
CARDIAC CATHETERIZATION REPORT Mrs. Daigle is a 81-year-old female with a known history of hypertension, hyperlipidemia and diabetes mellitus who has been complaining of progressive dyspnea on exertion. She subsequently underwent myocardial perfusion imaging that was consistent with stress-induced ischemia involving the inferior wall. In view of that, recommendation was made regarding cardiac catheterization. The procedure as well as its risks and complications were discussed with the patient, who was in full understanding and agreement. PROCEDURE DESCRIPTION: Patient was brought to the cathode washer in a fasting, semi-sedated state after receiving fentanyl and Benadryl and achieving a moderate conscious sedated state. Using Xylocaine anesthesia and Seldinger technique, a 6-Danish sheath was introduced in the right radial artery. Selective right and left coronary angiography was performed using 5-Danish 3.5 bend right and left Berto catheters. Multiple views were taken of the arteries, including hemiaxial views. Following that, a 5-Danish tight pigtail catheter was introduced in the left ventricle and left ventricular end-diastolic pressure was calculated. Following that, catheter and sheath were removed. Hemostasis was obtained by deployment of a TR band. There was no immediate complication. Patient was returned to her room in stable condition. Of note, the patient received 4500 units of intravenous heparin as well as intra-arterial verapamil. FINDINGS: LEFT MAIN: This is a short-sized vessel, large in caliber, bifurcating into left circumflex and left anterior descending artery. Left main coronary artery has no evidence of high-grade stenosis. LEFT ANTERIOR DESCENDING ARTERY: This is a large-sized vessel reaching to the apex giving rise to 2 diagonal branches. The left descending artery has mild plaque of approximately 10% without any evidence of high-grade stenosis. LEFT CIRCUMFLEX: This is a codominant vessel giving rise to a large obtuse marginal branch proximally, and distally bifurcating into PDA and posterolateral segment and branches. The left circumflex as well as its branches have no evidence of obstructive coronary artery disease. Left circumflex is a codominant vessel that has a 10% plaque proximally without any evidence of high-grade stenosis. LEFT VENTRICULOGRAM: Left ventriculogram was not performed. HEMODYNAMICS: There was no gradient across the aortic valve. The left ventricular end- diastolic pressure was 16-20 mmHg. CONCLUSION: 1. 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 2. Codominant system. RECOMMENDATIONS: In view of findings and anatomy, I have recommended continued medical therapy with the aggressive coronary risk modifications that have been initiated. Those findings and recommendations were discussed with the patient and her family, and they are in full understanding and agreement. Duration of sedation was 20 minutes. CHING / RONAN: [id number] /
--- NOTE | 2021-05-06 12:26 | LTR ---
May 06, 2021 To: Nan Sparks, Nurse Practitioner Re: Olinda Daigle (44) Dear Ms. Sparks, I had the pleasure of performing cardiac catheterization on Mrs. Daigle at [facility] on May 06, and a full copy of the procedure note will be forwarded to you. In brief, she was found to have mild intimal disease in the LAD and the RCA with no evidence of high-grade stenosis. Based on those findings, I have recommended continued medical therapy with the aggressive coronary risk modifications that have been initiated. Thank you again for allowing me to participate in this patient's care. Please feel free to call with any questions. Sincerely, Jamir Caba M.D. CHING / RONAN: [id number] /
[2021-05-06 17:55] VITALS: BP 121/59; PULSE 56
[2021-05-06] MEDS ORDERED: MONTELUKAST 10 MG TAB PO SCH (21:00)
== END 2021-05-06 12:47 | disposition home or self-care (01) ==
LOC: CATHCVL 05:40
PROVIDERS: ATTEND Internal Medicine Interventional Cardiology
DX: I25.10 Atherosclerotic heart disease of native coronary artery without angina pectoris (principal)
CPT/HCPCS: 93458; 80048; 85025; 87635; C1894; C1769; J2250; J2001; J3010; J1644; Q9967